=== PATIENT | male | born 1950 | race Caucasian/White ===

== ENCOUNTER 2018-06-16 13:26 | Emergency (ER) | payer MEDICARE, SELFPAY ==
[2018-06-16 13:27] VITALS: BP 159/99; PULSE 88; RESP 10; TEMP 36.4; O2SAT 99; BMI 33.6
--- NOTE | 2018-06-16 13:54 | ED.VISSUMM ---
- ER Visit Summary Date of Service: 06/16/18 Chief Complaint: Chest discomfort History of Present Illness: The patient is a 67 M who shoveled his driveway yesterday without experiencing chest pain, shortness of breath or diaphoresis. He did not complain of nausea either. 30 minutes after he was in the house, he states he had itching of his back. He noted a rash on his chest this morning. He did have chickenpox as a child. He has no other symptoms. Review of systems is positive only for chest discomfort and rash. 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 It is noted on his back as well as chest. The rash does not cross midline. HEENT exam is unremarkable. Cardiopulmonary exam is unremarkable. Lower extremity exam is unremarkable with no evidence of DVT or peripheral arterial disease. Blood pressure is elevated. He does have history of hypertension. Test Results: None were obtained Emergency Department Course and Treatment: Patient was informed he has shingles . He was given a prescription for Famvir since symptoms started less than 24 hours ago and family is not on formulary at [facility] Treatment Plan: Famvir 500 mg 3 times daily for 7 days Disposition: Discharge to home Impression: Herpes varicella-zoster T6 distribution left side This note was generated with [employer] dictation software. It may contain incorrect words, spelling, and punctuation that were not noted in review of the chart prior to signing ED Disposition - Plan for ED Patient: Disposition: Home or Assisted Living Chief Complaint: Chest Pain Instructions: ED Shingles Prescriptions: Famciclovir 500 mg PO TID #21 tab Referrals: Lenin Monaco MD [Primary Care Provider] - 10-14 Days if not better
--- NOTE | 2018-06-16 13:58 | ED.DCSUM_ITS ---
- ER Visit Summary Date of Service: 06/16/18 Chief Complaint: Chest discomfort History of Present Illness: The patient is a 67 M who shoveled his driveway yesterday without experiencing chest pain, shortness of breath or diaphoresis. He did not complain of nausea either. 30 minutes after he was in the house, he states he had itching of his back. He noted a rash on his chest this morning. He did have chickenpox as a child. He has no other symptoms. Review of systems is positive only for chest discomfort and rash. 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 It is noted on his back as well as chest. The rash does not cross midline. HEENT exam is unremarkable. Cardiopulmonary exam is unremarkable. Lower extremity exam is unremarkable with no evidence of DVT or peripheral arterial disease. Blood pressure is elevated. He does have history of hypertension. Test Results: None were obtained Emergency Department Course and Treatment: Patient was informed he has shingles . He was given a prescription for Famvir since symptoms started less than 24 hours ago and family is not on formulary at [facility] Treatment Plan: Famvir 500 mg 3 times daily for 7 days Disposition: Discharge to home Impression: Herpes varicella-zoster T6 distribution left side This note was generated with [employer] dictation software. It may contain incorrect words, spelling, and punctuation that were not noted in review of the chart prior to signing ED Disposition - Plan for ED Patient: Disposition: Home or Assisted Living Chief Complaint: Chest Pain Instructions: ED Shingles Prescriptions: Famciclovir 500 mg PO TID #21 tab Referrals: Lenin Monaco MD [Primary Care Provider] - 10-14 Days if not better
--- NOTE | 2018-06-16 14:22 | EKG12_ITS ---
Test Reason : CP Blood Pressure : / mmHG Vent. Rate : 090 BPM Atrial Rate : 090 BPM P-R Int : 150 ms QRS Dur : 080 ms QT Int : 346 ms P-R-T Axes : 057 019 024 degrees QTc Int : 423 ms Normal sinus rhythm Normal ECG Confirmed by SEBASTIAN RODRIGES, RHINA ([id number]), tape editor SEAN ORNELAS ([id number]) on 06/18/2018 1:43:35 PM Referred By: MONICA/MELISSA Confirmed By:RHINA CORTES MD
--- OUTSIDE RECORDS SUMMARY | 2018-08-19 02:36 | XMS RPT_ITS ---
:1950 Author Organization OHIP Care Team Providers Name Role Phone LENIN GAGNON Attending Unavailable LENIN GAGNON Referring Unavailable DAVID AVILA (PA) Attending Unavailable LENIN GAGNON Referring Unavailable ENRIQUE SORIANO Admitting Unavailable ENRIQUE SORIANO Attending Unavailable CHELSI, LENIN Tovar Referring Unavailable DAVID AVILA (PA) Attending Unavailable CHELSI, LENIN Tovar Referring Unavailable LENIN GAGNON Attending Unavailable LENIN GAGNON Referring Unavailable LENIN GAGNON Referring Unavailable Lenin Gagnon Primary Care Unavailable Johns, Huber Attending Unavailable PROBLEMS PROBLEMS DATE TYPE CONDITION / CODE ATTENDING STATUS SOURCE 03/28/2015 Active Essential NA Active [facility] (primary) [place] hypertension / Repository I10(ICD-10) 12/03/2017 Active Encounter for BO, Active [facility] screening for ENRIQUE Ross [place] malignant neoplasm Repository of colon / Z12.11(ICD-10) PROCEDURES PROCEDURES No Procedure Records FoundRESULTS RESULTS 12 LEAD ELECTROCARDIOGRAM Observed: 06/18/2018 Status: F Source: [place] 1:44 PM [facility] [place] REPOSITORY [facility] Cardiovascular Services [address] [place] [address] 12 Lead EKG 06/16/18 1327 MR#: [id number] Acct: [id number] Name: KATEY CORDON Rep #: [id number] : 1950 67 From: Mc Cortes MD Attending Dr: Status: DEP ER Ordering Dr: Provider,Ed P. Date: 06/16/18 Location: ED Sex: M C Admitted: Test Reason : CP Blood Pressure : / mmHG Vent. Rate : 090 BPM Atrial Rate : 090 BPM P-R Int : 150 ms QRS Dur : 080 ms QT Int : 346 ms P-R-T Axes : 057 019 024 degrees QTc Int : 423 ms Normal sinus rhythm Normal ECG Confirmed by MC CORTES MD ([id number]), book or script editor SEAN ORNELAS ([id number]) on 06/18/2018 1:43:35 PM Referred By: MONICA/MELISSA Confirmed By:MC CORTES MD 06/18/18 1343 Date Mc Cortes MD CC: ED PHYSICIAN PROVIDER; Huber Johns MD; Lenin Gagnon MD Signed EMERGENCY DEPARTMENT Observed: 06/16/2018 Status: F Source: [place] SUMMARY 1:58 PM [facility] [place] REPOSITORY [facility] Medical Records Department [address] [place] [address] Emergency Department Summary 06/16/18 1354 MR#: [id number] Acct: [id number] Name: KATEY CORDON Rep #: [id number] : 1950 67 From: Huber Johns MD PCP: Lenin Gagnon MD Status: PRE ER - ER Visit Summary Date of Service: 06/16/18 Chief Complaint: Chest discomfort History of Present Illness: The patient is a 67 M who shoveled his driveway yesterday without experiencing chest pain, shortness of breath or diaphoresis. He did not complain of nausea either. 30 minutes after he was in the house, he states he had itching of his back. He noted a rash on his chest this morning. He did have chickenpox as a child. He has no other symptoms. Review of systems is positive only for chest discomfort and rash. 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 It is noted on his back as well as chest. The rash does not cross midline. HEENT exam is unremarkable. Cardiopulmonary exam is unremarkable. Lower extremity exam is unremarkable with no evidence of DVT or peripheral arterial disease. Blood pressure is elevated. He does have history of hypertension. Test Results: None were obtained Emergency Department Course and Treatment: Patient was informed he has shingles . He was given a prescription for Famvir since symptoms started less than 24 hours ago and family is not on formulary at [facility] Treatment Plan: Famvir 500 mg 3 times daily for 7 days Disposition: Discharge to home Impression: Herpes varicella-zoster T6 distribution left side This note was generated with [employer] software. It may contain incorrect words, spelling, and punctuation that were not noted in review of the chart prior to signing ED Disposition - Plan for ED Patient: Disposition: Home or Assisted Living Chief Complaint: Chest Pain Instructions: ED Shingles Prescriptions: Famciclovir 500 mg PO TID #21 tab Referrals: Lenin Gagnon MD [Primary Care Provider] - 10-14 Days if not better What to do if you have Problems For any increased pain, shortness of breath, bleeding, nausea or vomiting, chest pain, or any unexpected problems, contact your Primary Care Provider. Call [facility] ([phone]) or report to the closest Emergency Room. Call 911 if necessary. 06/16/18 1928 <Electronically signed by Huber Johns MD> Date Huber Johns MD Cosigner Signature (If Indicated): Date CC: Didier Nance MD; Lenin Gagnon MD CBC Collected: 01/16/2018 Status: F Source: ERIE 8:02 AM [facility] RE[facility] TYPE CODE TESTS RESULT OUT OF REFERENCE UNITS RANGE LAB WBC 3.70-11.00 k/uL WBC 4.12 LAB RBC 4.20-6.00 m/uL RBC 4.84 LAB HGB 13.0-17.0 g/dL Hemoglobin 14.9 LAB HCT 39.0-51.0 % Hematocrit 47.3 LAB MCV 80.0-100.0 fL MCV 97.7 LAB MCH 26.0-34.0 pG MCH 30.8 LAB MCHC 30.5-36.0 g/dL MCHC 31.5 LAB RDWCV 11.5-15.0 % RDW-CV 12.0 LAB PLTCT 150-400 k/uL Platelet Count 268 LAB MPV 9.0-12.7 fL MPV 10.0 LAB ABSNUC <0.01 k/uL Absolute nRBC <0.01 Performed By: #### CBC, CMP, LIPB #### [facility] [address] [place], [place] [address] COMP METABOLIC PANEL Collected: 01/16/2018 Status: F Source: [place] 8:02 AM [facility] [place] REPOSITORY TYPE CODE TESTS RESULT OUT OF REFERENCE UNITS RANGE LAB TP 6.3-8.0 g/dL Protein, Total 6.6 LAB ALB 3.9-4.9 g/dL Albumin 3.9 LAB CA 8.5-10.2 mg/dL Calcium, Total 9.1 LAB TBIL 0.2-1.3 mg/dL Bilirubin, Total 0.4 LAB ALKP 36-108 U/L Alkaline Phosphatase 59 LAB AST 14-40 U/L AST 37 Result Comment: Results may be falsely increased due to interference by hemolysis. Suggest reorder as clinically indicated. LAB GLU 74-99 mg/dL Glucose 93 Result Comment: The [place] Diabetes Association (ADA) provides guidance for cutoff values for fasting glucose and random glucose. The ADA defines fasting as no caloric intake for at least 8 hours. Fas ting plasma glucose results between 100 to 125 mg/dL indicate increased risk for diabetes (prediabetes). Fasting plasma glucose results greater than or equal to 126 mg/dL meet the criteria for diagnosis of diabetes. In the absence of unequivocal hyperglycemia, results should be confirmed by repeat testing. In a patient with classic symptoms of hyperglycemia or hyperglycemic crisis, random plasma glucose results greater than or equal to 200 mg/dL meet the criteria for diagnosis of diabetes. Reference: Standards of Medical Care in Diabetes 2016, [place] Diabetes Association. Diabetes Care. 2016.39(Suppl 1). LAB BUN 9-24 mg/dL BUN 15 LAB CRET 0.73-1.22 mg/dL Creatinine 1.12 LAB NA 136-144 mmol/L Sodium 140 LAB K 3.7-5.1 mmol/L Potassium 4.2 LAB CL 97-105 mmol/L Chloride High 106 LAB CO2 22-30 mmol/L CO2 24 LAB AGAP 9-18 mmol/L Anion Gap 10 LAB ALT 10-54 U/L ALT 20 LAB GFRAA eGFR- Amer. >60 LAB GFRNAA . eGFR-All Other Races >60 Result Comment: eGFR (Estimated GFR) Units of measure: mL/min/1.73 meters squared eGFR is derived from the reexpressed MDRD Study equation using the following parameters: serum creatinine, age, gender and race. The creatinine assay has been calibrated to be traceable to IDMS. An eGFR <60 mL/min/1.73m2 for >3 months is consistent with chronic kidney disease. Refer to KDOQI guidelines for clinical interpretation. In patients with unstable renal function, e.g. those with acute kidney injury, the eGFR may not accurately reflect actual GFR. Performed By: #### CBC, CMP, LIPB #### [facility] [address] [place], [place] [address] LIPID PANEL, BASIC Collected: 01/16/2018 Status: F Source: [place] 8:02 AM [facility] [place] REPOSITORY TYPE CODE TESTS RESULT OUT OF REFERENCE UNITS RANGE LAB CHOL <200 mg/dL Cholesterol 154 Result Comment: <200 mg/dL, Desirable 200-239 mg/dL, Borderline high >239 mg/dL, High LAB TRIGLY <150 mg/dL Triglyceride 79 Result Comment: <150 mg/dL, Normal 150-199 mg/dL, Borderline high 200-499 mg/dL, High >499 mg/dL, Very high LAB HDL >39 mg/dL HDL-Cholesterol 41 Result Comment: 40-59 mg/dL, Acceptable >59 mg/dL, High: Negative risk factor for coronary heart disease <40 mg/dL, Low: Positive risk factor for coronary heart disease LAB LDL <100 mg/dL LDL-Cholesterol 97 Result Comment: <100 mg/dL, Optimal 100-129 mg/dL, Near optimal/above optimal 130-159 mg/dL, Borderline high 160-189 mg/dL, High >189 mg/dL, Very high Secondary prevention optimal LDL Cholesterol levels are recommended to be < 70 mg/dL LAB NONHDL <130 mg/dL Non HDL Cholesterol 113 Result Comment: <130 mg/dL, Optimal 130-159 mg/dL, Near optimal/above optimal 160-189 mg/dL, Borderline high 190-219 mg/dL, High >219 mg/dL, Very high Secondary prevention optimal non HDL Cholesterol levels are recommended to be < 100 mg/dL LAB FT hrs Fasting Time 12 LAB VLDL <30 mg/dL VLDL Cholesterol 16 LAB TCHDL <5.10 TC:HDL Ratio 3.76 LAB LDLHDL <2.54 LDL:HDL Ratio 2.37 Result Comment: Reference: 1. National Cholesterol Education Program ATP III Guideline At-A-Glance Quick Desk Reference: National Heart, Lung, and Blood [place]. National Institutes of Health. 2001: NIH Publication No. 01-3305. 2. An International Atherosclerosis Society position paper: global recommendations for the management of dyslipidemia: executive summary, Atherosclerosis. 2014: 232(2):410-413. Performed By: #### CBC, CMP, LIPB #### [facility] [address] [address] PROGRESS Observed: 01/14/2018 Status: COMPLETED Source: [place] 11:23 AM [facility] REPOSITORY HNO ID: [id number] Author: Lenin Gagnon Service: (none) Author Type: Physician Type: Progress Notes Filed: 01/14/2018 11:31 AM Note Text: This note was created using Panlriter. Subjective Katey Cordon was here for follow up. His hypertension and lumbago were stable. He was recently started on omeprazole for GERD and this was better. He was supposed to finish omeprazole and see if his symptoms recur. He had not done his annual lab work. He will do so tomorrow, fasting. He was usually using his CPAP, at least 5 nights per week, with good effect. ACTIVE PROBLEM LIST Essential Hypertension Benign Neoplasm of Colon Erectile Dysfunction Lumbar Spondylosis VICENTA (obstructive sleep apnea) AHI 40.5 Gerd With Esophagitis Obesity, Class II, Bmi 35-39.9 Current Outpatient Prescriptions: Omeprazole (PRILOSEC) 40 mg capsule Take 1 capsule by mouth once daily. triamterene-hydrochlorothiazide (MAXZIDE-25) 37.5-25 mg per tablet Take 1 tablet by mouth once daily. diltiazem CD (CARTIA XT) 240 mg 24 hr capsule Take 1 capsule by mouth once daily. meloxicam (MOBIC) 15 mg tablet TAKE 1 TABLET EVERY DAY potassium chloride ER (K-DUR, KLOR-CON) 10 mEq tablet TAKE 2 TABLETS ONE TIME DAILY WITH FOOD turmeric root extract 500 mg cap Take 1 capsule by mouth twice daily. CPAP AutoPAP 5-15 cmH2O, suitable mask, humidity, filters. Lifetime supplies. Dx: G47.33. nystatin powder Apply to affected area twice daily as needed. 1 application Cholecalciferol, Vitamin D3, 2,000 unit ORAL Cap Take 1 tablet by mouth once daily. No current facility-administered medications for this visit. Review of Systems Constitutional: Negative. Respiratory: Negative. Cardiovascular: Negative. Gastrointestinal: Negative. Musculoskeletal: Positive for back pain. Neurological: Negative. Objective BP 118/70 (BP Site: Right Arm, BP Position: Sitting, BP Cuff Size: Extra Large Adult) Pulse 68 Temp 36.2 ?C (97.2 ?F) (Left Tympanic) Resp 16 Ht 182.9 cm (6') Wt 120.2 kg (265 lb) BMI 35.94 kg/m? Physical Exam Constitutional: He appears well-developed and well-nourished. HENT: Head: Normocephalic. Neck: No JVD present. Cardiovascular: Normal rate, regular rhythm, normal heart sounds and intact distal pulses. Exam reveals no gallop. No murmur heard. Pulmonary/Chest: He has no wheezes. He has no rales. Abdominal: Soft. Musculoskeletal: He exhibits no edema. Assessment and Plan 1. Medicare annual wellness visit, subsequent - ICD9: V70.0, ICD10: Z00.00 (primary diagnosis) See other note. 2. Essential hypertension - ICD9: 401.9, ICD10: I10 - good control - POTASSIUM CHLORIDE ER 10 MEQ TABLET,EXTENDED RELEASE(PART/CRYST) 3. VICENTA (obstructive sleep apnea) AHI 40.5 - ICD9: 327.23, ICD10: G47.33 I encouraged 100% adherence to CPAP use. 4. GERD with esophagitis - ICD9: 530.11, ICD10: K21.0 Controlled. Finish and call for refill if needed. 5. Obesity, Class II, BMI 35-39.9 - ICD9: 278.00, ICD10: E66.9 Weight loss. 6. Lumbar spondylosis - ICD9: 721.3, ICD10: M47.816 Controlled. - MELOXICAM 15 MG TABLET Lenin Gagnon MD PROGRESS Observed: 01/14/2018 Status: COMPLETED Source: [facility] 11:03 AM [facility] [place] REPOSITORY HNO ID: [id number] Author: Lenin Gagnon Service: (none) Author Type: Physician Type: Progress Notes Filed: 01/14/2018 11:31 AM Note Text: Medicare Yearly Visit Medical B eligibilty date 06/27/2013 Date of last exam 03/28/2015 PAST MEDICAL HISTORY Diagnosis Date - Benign neoplasm of colon - Degenerative disc disease 08/09/2009 BMD 01/2010 normal. Low VitD and calcium- enc supplements - Depressive disorder, not elsewhere classified 02/06/2007 - Diverticulosis of colon (without mention of hemorrhage) Diverticulosis - Episodic cluster headache, not intractable 04/23/2015 - Erectile dysfunction 01/18/2011 - Essential hypertension 11/28/2005 - Internal hemorrhoids without mention of complication - Lumbago - Lumbar spondylosis 08/12/2012 - VICENTA (obstructive sleep apnea) AHI 40.5 08/22/2016 - VICENTA on CPAP 08/22/2016 [facility] - Personal history of colonic polyps Colon polyps - Personal history of tobacco use 08/09/2009 - Snoring - Unspecified essential hypertension - Unspecified hemorrhoids without mention of complication Hemorrhoids - Vitamin D deficiency 07/25/2010 27.9 level in 12/2009, started supplements PAST SURGICAL HISTORY Procedure Laterality Date - APPENDECTOMY - COLONOS W/REM POLYP SNARE 02/09/08 - COLONOSCOP W/ OR W/O [facility] SPEC 07/27/2004 Colonoscopy - COLONOSCOP W/ OR W/O [facility] SPEC 12/03/2017 Colonoscopy - EGD W/O OR W/BRUSH/WASH 11/13/12 EGD - EGD W/O OR W/BRUSH/WASH 12/03/2017 EGD - PAST SURGICAL HISTORY OF 1998 right great toe growth removed - PAST SURGICAL HISTORY OF 2012 injections in back for pain Patient has no known allergies. Medications reviewed: Yes FAMILY HISTORY Problem Relation Age of Onset - other (Other) Father MVA - Hypertension Brother - other (colon polyps) Brother were cancerous - Cancer Mother - Thyroid Mother - Alzheimer's Disease Mother - Hypertension Sister SOCIAL HISTORY: Social History Marital status: Spouse name: Years of education: Number of children: 0 Occupational History Occupation Employer Comment retired [employer] Social History Main Topics Smoking status: Former Smoker Packs/day: 0.50 Years: 40.00 Types: Cigarettes Quit date: 02/21/2009 Smokeless tobacco: Never Used Comment: less than a half a pack Alcohol use: Yes 1.0 oz/week Comment: rare Drug use: Yes Types: Marijuana Comment: occasionally Sexual activity: Yes Partners with: Female Katey works out regularly 3 times per week with walking on treadmill and light weights. He watches his diet for sodium, low fat and low cholesterol most of the time. List of current specialists seen: [facility]. End of Live Planning discussed including patients advanced directive wishes: No I am willing to follow Katey's advanced directives. Depression screen He in the past two weeks denies having felt down, depressed, hopeless or with little interest or pleasure in doing things. Functional Ability/Safety Screen 1. Was the patient's timed Up and Go test unsteady or longer than 30 seconds? No 2. Does the patient need help with the phone, transportation, shopping,preparing meals, housework, laundry, medications or managing money? No 3. Does your home have rugs in the hallway, lack of grab bars in the bathroom, lack of handrails on the stairs or have poor lighting? No Hearing Evaluation: normal PHYSICAL EXAM BP 134/76 (BP Site: Left Arm, BP Position: Sitting, BP Cuff Size: Large Adult) Pulse 68 Temp 36.2 ?C (97.2 ?F) (Left Tympanic) Resp 16 Ht 182.9 cm (6') Wt 120.2 kg (265 lb) BMI 35.94 kg/m? Alert and oriented X 3: YES Body mass index is 35.94 kg/m?. Visual acuity: OD: 20/70 OS: 20/ 50 OU: 20/40. ASSESSMENT/PLAN: 67 year old male The following prevention plan was discussed during the office visit and provided to the patient: - Weight Loss - Vaccines recommended Td, ABN is required. Shingrix. Lenin Gagnon MD CNOV Observed: 01/14/2018 Status: COMPLETED Source: [place] 10:20 AM [facility] REPOSITORY Office Visit (INTMWS) KATEY CORDON V ([id number]) 1950 M Date Time Provider Department 01/14/18 10:20 AM LENIN GAGNON INTTHANG During your visit today, we recorded the following information about you: Temperature Pulse Respiration Blood pressure 97.2 degrees 68/minute 16/minute 118/70 Weight Height 120.2 kg 1.829 m Lenin Gagnon MD 01/14/2018 11:31 AM Signed Medicare Yearly Visit Medical B eligibilty date 06/27/2013 Date of last exam 03/28/2015 PAST MEDICAL HISTORY Diagnosis Date - Benign neoplasm of colon - Degenerative disc disease 08/09/2009 BMD 01/2010 normal. Low VitD and calcium- enc supplements - Depressive disorder, not elsewhere classified 02/06/2007 - Diverticulosis of colon (without mention of hemorrhage) Diverticulosis - Episodic cluster headache, not intractable 04/23/2015 - Erectile dysfunction 01/18/2011 - Essential hypertension 11/28/2005 - Internal hemorrhoids without mention of complication - Lumbago - Lumbar spondylosis 08/12/2012 - VICENTA (obstructive sleep apnea) AHI 40.5 08/22/2016 - VICENTA on CPAP 08/22/2016 [facility] - Personal history of colonic polyps Colon polyps - Personal history of tobacco use 08/09/2009 - Snoring - Unspecified essential hypertension - Unspecified hemorrhoids without mention of complication Hemorrhoids - Vitamin D deficiency 07/25/2010 27.9 level in 12/2009, started supplements PAST SURGICAL HISTORY Procedure Laterality Date - APPENDECTOMY - COLONOS W/REM POLYP SNARE 02/09/08 - COLONOSCOP W/ OR W/O [facility] SPEC 07/27/2004 Colonoscopy - COLONOSCOP W/ OR W/O [facility] SPEC 12/03/2017 Colonoscopy - EGD W/O OR W/BRUSH/WASH 11/13/12 EGD - EGD W/O OR W/BRUSH/WASH 12/03/2017 EGD - PAST SURGICAL HISTORY OF 1998 right great toe growth removed - PAST SURGICAL HISTORY OF 2012 injections in back for pain Patient has no known allergies. Medications reviewed: Yes FAMILY HISTORY Problem Relation Age of Onset - other (Other) Father MVA - Hypertension Brother - other (colon polyps) Brother were cancerous - Cancer Mother - Thyroid Mother - Alzheimer's Disease Mother - Hypertension Sister SOCIAL HISTORY: Social History Marital status: Spouse name: Years of education: Number of children: 0 Occupational History Occupation Employer Comment retired [employer] Social History Main Topics Smoking status: Former Smoker Packs/day: 0.50 Years: 40.00 Types: Cigarettes Quit date: 02/21/2009 Smokeless tobacco: Never Used Comment: less than a half a pack Alcohol use: Yes 1.0 oz/week Comment: rare Drug use: Yes Types: Marijuana Comment: occasionally Sexual activity: Yes Partners with: Female Katey works out regularly 3 times per week with walking on treadmill and light weights. He watches his diet for sodium, low fat and low cholesterol most of the time. List of current specialists seen: [facility]. End of Live Planning discussed including patients advanced directive wishes: No I am willing to follow Katey's advanced directives. Depression screen He in the past two weeks denies having felt down, depressed, hopeless or with little interest or pleasure in doing things. Functional Ability/Safety Screen 1. Was the patient's timed Up and Go test unsteady or longer than 30 seconds? No 2. Does the patient need help with the phone, transportation, shopping,preparing meals, housework, laundry, medications or managing money? No 3. Does your home have rugs in the hallway, lack of grab bars in the bathroom, lack of handrails on the stairs or have poor lighting? No Hearing Evaluation: normal PHYSICAL EXAM BP 134/76 (BP Site: Left Arm, BP Position: Sitting, BP Cuff Size: Large Adult) Pulse 68 Temp 36.2 ?C (97.2 ?F) (Left Tympanic) Resp 16 Ht 182.9 cm (6') Wt 120.2 kg (265 lb) BMI 35.94 kg/m? Alert and oriented X 3: YES Body mass index is 35.94 kg/m?. Visual acuity: OD: 20/70 OS: 20/ 50 OU: 20/40. ASSESSMENT/PLAN: 67 year old male The following prevention plan was discussed during the office visit and provided to the patient: - Weight Loss - Vaccines recommended Td, ABN is required. Shingrix. MD Lenin Thibodeaux MD 01/14/2018 11:18 AM Signed VACCINES DUE: TDAP,TD(2 - Td) due on 12/04/2017 (Tetanus shot) INFLUENZA(1) due on 01/25/2018 (Flu shot) Recombinant shingles vaccine (Shingrix) is recommended; 2 doses 2-6 months apart. Please read information, check with your insurance, and call to schedule vaccination. You may also be directed to your local pharmacy. Lenin Gagnon MD 01/14/2018 11:31 AM Signed This note was created using Panlriter. Subjective Katey Cordon was here for follow up. His hypertension and lumbago were stable. He was recently started on omeprazole for GERD and this was better. He was supposed to finish omeprazole and see if his symptoms recur. He had not done his annual lab work. He will do so tomorrow, fasting. He was usually using his CPAP, at least 5 nights per week, with good effect. ACTIVE PROBLEM LIST Essential Hypertension Benign Neoplasm of Colon Erectile Dysfunction Lumbar Spondylosis VICENTA (obstructive sleep apnea) AHI 40.5 Gerd With Esophagitis Obesity, Class II, Bmi 35-39.9 Current Outpatient Prescriptions: Omeprazole (PRILOSEC) 40 mg capsule Take 1 capsule by mouth once daily. triamterene-hydrochlorothiazide (MAXZIDE-25) 37.5-25 mg per tablet Take 1 tablet by mouth once daily. diltiazem CD (CARTIA XT) 240 mg 24 hr capsule Take 1 capsule by mouth once daily. meloxicam (MOBIC) 15 mg tablet TAKE 1 TABLET EVERY DAY potassium chloride ER (K-DUR, KLOR-CON) 10 mEq tablet TAKE 2 TABLETS ONE TIME DAILY WITH FOOD turmeric root extract 500 mg cap Take 1 capsule by mouth twice daily. CPAP AutoPAP 5-15 cmH2O, suitable mask, humidity, filters. Lifetime supplies. Dx: G47.33. nystatin powder Apply to affected area twice daily as needed. 1 application Cholecalciferol, Vitamin D3, 2,000 unit ORAL Cap Take 1 tablet by mouth once daily. No current facility-administered medications for this visit. Review of Systems Constitutional: Negative. Respiratory: Negative. Cardiovascular: Negative. Gastrointestinal: Negative. Musculoskeletal: Positive for back pain. Neurological: Negative. Objective BP 118/70 (BP Site: Right Arm, BP Position: Sitting, BP Cuff Size: Extra Large Adult) Pulse 68 Temp 36.2 ?C (97.2 ?F) (Left Tympanic) Resp 16 Ht 182.9 cm (6') Wt 120.2 kg (265 lb) BMI 35.94 kg/m? Physical Exam Constitutional: He appears well-developed and well-nourished. HENT: Head: Normocephalic. Neck: No JVD present. Cardiovascular: Normal rate, regular rhythm, normal heart sounds and intact distal pulses. Exam reveals no gallop. No murmur heard. Pulmonary/Chest: He has no wheezes. He has no rales. Abdominal: Soft. Musculoskeletal: He exhibits no edema. Assessment and Plan 1. Medicare annual wellness visit, subsequent - ICD9: V70.0, ICD10: Z00.00 (primary diagnosis) See other note. 2. Essential hypertension - ICD9: 401.9, ICD10: I10 - good control - POTASSIUM CHLORIDE ER 10 MEQ TABLET,EXTENDED RELEASE(PART/CRYST) 3. VICENTA (obstructive sleep apnea) AHI 40.5 - ICD9: 327.23, ICD10: G47.33 I encouraged 100% adherence to CPAP use. 4. GERD with esophagitis - ICD9: 530.11, ICD10: K21.0 Controlled. Finish and call for refill if needed. 5. Obesity, Class II, BMI 35-39.9 - ICD9: 278.00, ICD10: E66.9 Weight loss. 6. Lumbar spondylosis - ICD9: 721.3, ICD10: M47.816 Controlled. - MELOXICAM 15 MG TABLET Lenin Gagnon MD Referring Provider: LENIN GAGNON [[id number]] Allergies As of Date: 01/14/2018 (No Known Allergies) Date Reviewed: 01/14/2018 Reviewed by: Brook Crawley LPN - Fully Assessed Reason for Visit: Yearly Exam [187] Primary Visit Diagnosis:Medicare annual wellness visit, subsequent [Z00.00] Other Visit Diagnoses:Essential hypertension [I10] VICENTA (obstructive sleep apnea) AHI 40.5 [G47.33] GERD with esophagitis [K21.0] Obesity, Class II, BMI 35-39.9 [E66.9] Lumbar spondylosis [M47.816] Order(s):meloxicam (MOBIC) 15 mg tabletTake 1 tablet by mouth once daily.Disp: 90 tabletRfl: 3 potassium chloride ER (K-DUR, KLOR-CON) 10 mEq tabletTAKE 2 TABLETS ONE TIME DAILY WITH FOODDisp: 180 tabletRfl: 3 Prescriptions as of 01/14/2018 Sig: MELOXICAM 15 MG TABLET Take 1 tablet by mouth once d* POTASSIUM CHLORIDE ER 10 MEQ * TAKE 2 TABLETS ONE TIME DAILY* OMEPRAZOLE 40 MG CAPSULE,JEANNIE* Take 1 capsule by mouth once * TRIAMTERENE 37.5 MG-HYDROCHLO* Take 1 tablet by mouth once d* DILTIAZEM SR 240 MG 24 HR CAP Take 1 capsule by mouth once * TURMERIC ROOT EXTRACT 500 MG * Take 1 capsule by mouth twice* CPAP AutoPAP 5-15 cmH2O, suitable * NYSTATIN 100,000 UNIT/GRAM TO* Apply to affected area twice* CHOLECALCIFEROL (VITAMIN D3) * Take 1 tablet by mouth once d* Problem List As Of Date 01/14/2018 Noted Resolved Sprain and Strain of Ribs [S23.41XA] INVALID FOR*08/09/2009 Unspecified constipation [K59.00] INVALID FOR*10/03/2016 Essential hypertension [I10] INVALID FOR* Lumbago [M54.5] 07/08/2017 Unspecified hemorrhoids without mention of comp* 10/03/2016 More... Diverticulosis of colon (without mention of hem* 10/03/2016 More... Personal history of colonic polyps [Z86.010] 01/14/2018 More... Tobacco Use Disorder [F17.200] INVALID FOR*08/09/2009 Depressive disorder, not elsewhere classified [*INVALID FOR*10/03/2016 BENIGN NEOPLASM LG BOWEL [D12.6] INVALID FOR* Degenerative disc disease [YJX5276] INVALID FOR*10/03/2016 More... Personal history of tobacco use [Z87.891] INVALID FOR*10/03/2016 Left hip pain [M25.552] INVALID FOR*10/03/2016 Vitamin D deficiency [E55.9] INVALID FOR*10/03/2016 More... Erectile dysfunction [N52.9] INVALID FOR*01/14/2018 Lumbar spondylosis [M47.816] INVALID FOR* Episodic cluster headache, not intractable [G44*INVALID FOR*10/03/2016 VICENTA (obstructive sleep apnea) AHI 40.5 [G47.33] INVALID FOR* GERD with esophagitis [K21.0] INVALID FOR* Obesity, Class II, BMI 35-39.9 [E66.9] INVALID FOR* Other instructions from your clinician: VACCINES DUE: TDAP,TD(2 - Td) due on 12/04/2017 (Tetanus shot) INFLUENZA(1) due on 01/25/2018 (Flu shot) Recombinant shingles vaccine (Shingrix) is recommended; 2 doses 2-6 months apart. Please read information, check with your insurance, and call to schedule vaccination. You may also be directed to your local pharmacy. Prescriptions ordered this encounter Disp Refills Start End MELOXICAM 15 MG TABLET 90 t* 3 01/14/2018 Class: [employer] Route: ORAL Sig: Take 1 tablet by mouth once daily. POTASSIUM CHLORIDE ER 10 MEQ TABLET,* 180 * 3 01/14/2018 Class: [employer] Sig: TAKE 2 TABLETS ONE TIME DAILY WITH FOOD Medications Discontinued During This Encounter sildenafil (VIAGRA) 100 mg ORAL tabl* 18 t* 3 07/23/2011 01/14/2018 Class: Print RX Route: ORAL Sig: Take 1 tablet by mouth. Take 30-60min before sexual intercourse as needed. Disc: Reason for discontinue is not on file. meloxicam (MOBIC) 15 mg tablet 90 t* 3 02/21/2017 01/14/2018 Sig: TAKE 1 TABLET EVERY DAY Disc: Reason for discontinue is not on file. potassium chloride ER (K-DUR, KLOR-C* 180 * 3 01/07/2017 01/14/2018 Sig: TAKE 2 TABLETS ONE TIME DAILY WITH FOOD Disc: Reason for discontinue is not on file. Disposition: Return in about 6 months (around 07/17/2018). Follow-up and Disposition History Recorded Encounter Status:Closed by LENIN GAGNON MD on 01/14/18 PROGRESS Observed: 12/12/2017 Status: COMPLETED Source: [facility] 4[facility]37 PM [facility] RE[facility] HNO ID: [id number] Author: David Avila (Pa) Service: (none) Author Type: Physician Capacity Analyst Type: Progress Notes Filed: 12/12/2017 4:43 PM Note Text: FOLLOW UP VISIT - ENDOSCOPY NAME: Katey Cordon [facility] NO.: [id number] DATE OF SERVICE: 12/11/2017 : 1950 REFERRING PHYSICIAN: Lenin Gagnon MD Katey is a patient I am following for dysphagia as well as need for high-risk screening colonoscopy due to family history of colon cancer and personal history of polyps. Dr. Soriano performed upper and lower endoscopy on 11/18/17. The patient was found to have diverticulosis with otherwise normal colon, normal stomach and duodenum, and reflux esophagitis. Pathology demonstrated: FINAL DIAGNOSIS 1. Antrum, biopsy (A) - Antral-type gastric mucosa with changes of inactive chronic gastritis. - An H. pylori immunohistochemical stain will be performed, the results of which will be reported in an addendum. 2. Esophagogastric junction, biopsy (B) - Inflamed cardiac and oxyntic-type gastric mucosa, negative for intestinal metaplasia. 3. Esophagus, mid, biopsy (C) - Fragment of squamous mucosa with no diagnostic abnormalities. - No prominence of eosinophils or lymphocytes and no intestinal metaplasia. BLAYNE/loy 12/04/2017 Deep Veras M.D., Ph.D. (Electronic Signature) SPECIMEN SUBMITTED A: ANTRUM, BIOPSY H/H B: ESOPHAGOGASTRIC JUNCTION, BIOPSY C: MID ESOPHAGUS, BIOPSY ADDENDUM ? ? ?Date Ordered: ? ? 12/06/2017 ? ? Date Reported: 12/08/2017 ? ? ? Given the background of chronic gastritis a Helicobacter pylori immunostain was performed on block A1 and is negative for Helicobacter pylori organisms. The patient notes no new complaints since the procedure. VITALS: There were no vitals taken for this visit. On examination, the abdomen is benign. Assessment IMPRESSION: family history of colon cancer, personal history of colon polyps. Reflux esophagitis PLAN: If the patient notes any problems or changes in bowel function, the patient should contact me immediately. Otherwise I recommend follow up endoscopy in 5 years. For the reflux esophagitis recommend treatment with omeprazole for 3 months, in addition to dietary and lifestyle modifications as discussed. He is instructed to follow up if his dysphagia worsens or persists despite these measures. Patient verbalized understanding and agreed with the plan. Diagnoses: (K21.0) GERD with esophagitis (primary encounter diagnosis) (Z80.0) Family history of colon cancer I spent 20 minutes in the visit, with more than 50% of the total tusn-re-cmwt time of the visit in counseling / coordination of care. David Avila PA-C CNOV Observed: 12/11/2017 Status: COMPLETED Source: [facility] 8:00 AM [facility] REPOSITORY Office Visit (GENSWS) KATEY CORDON V ([id number]) 1950 M Date Time Provider Department 12/11/17 8:00 AM DAVID AVILA (PA) During your visit today, we recorded the following information about you: David Avila PA-C 12/11/2017 8:20 AM Signed The following instructions are important for you related to your office visit today with the [facility]. INSTRUCTIONS FOLLOWING A NORMAL COLONOSCOPY W/ FAMILY HX COLON CANCER 5YR I discussed with you the findings of your colonoscopy. Since there were no worrisome abnormalities, I recommend you undergo repeat endoscopic screening every 5 years due to your family history of colon cancer. This is the current recommendation for colon cancer screening. If you note bleeding, change in bowel habits, or other suspicious colon related symptoms before that time, those symptoms should be evaluated as necessary. and INSTRUCTIONS FOR PEPTIC ULCER DISEASE - ESOPHAGITIS I discussed with you the findings of your upper endoscopy. Your upper endoscopy demonstrated esophagitis Esophagitis may be a form of peptic irritation, with acid moving from the stomach to the esophagus (gastroesophageal reflux) Factors that increase acid production include smoking and stress. If you smoke, stopping smoking will often cure these issues without needing other medications. Over the counter medications including antiacids and acid reducing medications including H2 blockers (Zantac and the like) and proton pump inhibitors (prilosec, prevacid and the like) neutralize or prevent acid production. Prescription strength proton pump inhibitors (PPIs) may be necessary if your symptoms persist. Carafate may be added to PPI treatment in refractory cases. Avoiding smoking, alcohol and antiinflammatory medications are important in the successful treatment of reflux esophagitis and peptic diseases. Other factors that contribute to GERD and esophagitis are being overweight, eating large meals before laying down and certain foods. Weight loss will help improve many GERD complaints. Remaining upright after eating large meals and having a small supper will also help symptoms. Avoiding food that contribute to reflux - chocolate, caffeine, cheddar cheese may also help. Follow up upper endoscopy may be recommended to assure healing of the esophagus. New or worsening symptoms such are epigastric pain, burning, difficulty swallowing or food sticking should be relayed to your physician. Feeling full early after eating, or black, tarry, foul smelling stools are also worrisome. If you have any difficulties or concerns, you should contact our office immediately. If you note any additional difficulties, questions, or concerns, you should contact our office immediately @ [phone] and ask to be transferred to the General Surgery department. David Avila PA-C 12/12/2017 4:43 PM Signed FOLLOW UP VISIT - ENDOSCOPY NAME: Katey Storey [facility] NO.: [id number] DATE OF SERVICE: 12/11/2017 : 1950 REFERRING PHYSICIAN: Lenin Gagnon MD Katey is a patient I am following for dysphagia as well as need for high-risk screening colonoscopy due to family history of colon cancer and personal history of polyps. Dr. Soriano performed upper and lower endoscopy on 11/18/17. The patient was found to have diverticulosis with otherwise normal colon, normal stomach and duodenum, and reflux esophagitis. Pathology demonstrated: FINAL DIAGNOSIS 1. Antrum, biopsy (A) - Antral-type gastric mucosa with changes of inactive chronic gastritis. - An H. pylori immunohistochemical stain will be performed, the results of which will be reported in an addendum. 2. Esophagogastric junction, biopsy (B) - Inflamed cardiac and oxyntic-type gastric mucosa, negative for intestinal metaplasia. 3. Esophagus, mid, biopsy (C) - Fragment of squamous mucosa with no diagnostic abnormalities. - No prominence of eosinophils or lymphocytes and no intestinal metaplasia. BLAYNE/loy 12/04/2017 Deep Veras M.D., Ph.D. (Electronic Signature) SPECIMEN SUBMITTED A: ANTRUM, BIOPSY H/H B: ESOPHAGOGASTRIC JUNCTION, BIOPSY C: MID ESOPHAGUS, BIOPSY ADDENDUM ? ? ?Date Ordered: ? ? 12/06/2017 ? ? Date Reported: 12/08/2017 ? ? ? Given the background of chronic gastritis a Helicobacter pylori immunostain was performed on block A1 and is negative for Helicobacter pylori organisms. The patient notes no new complaints since the procedure. VITALS: There were no vitals taken for this visit. On examination, the abdomen is benign. Assessment IMPRESSION: family history of colon cancer, personal history of colon polyps. Reflux esophagitis PLAN: If the patient notes any problems or changes in bowel function, the patient should contact me immediately. Otherwise I recommend follow up endoscopy in 5 years. For the reflux esophagitis recommend treatment with omeprazole for 3 months, in addition to dietary and lifestyle modifications as discussed. He is instructed to follow up if his dysphagia worsens or persists despite these measures. Patient verbalized understanding and agreed with the plan. Diagnoses: (K21.0) GERD with esophagitis (primary encounter diagnosis) (Z80.0) Family history of colon cancer I spent 20 minutes in the visit, with more than 50% of the total zpvu-ce-gklc time of the visit in counseling / coordination of care. David Avila PA-C Referring Provider: LENIN GAGNON [[id number]] Allergies As of Date: 12/11/2017 (No Known Allergies) Date Reviewed: 12/11/2017 Reviewed by: Hugo Vivas LPN - Fully Assessed Primary Visit Diagnosis:GERD with esophagitis [K21.0] Other Visit Diagnosis:Family history of colon cancer [Z80.0] Order(s):Omeprazole (PRILOSEC) 40 mg capsuleTake 1 capsule by mouth once daily.Disp: 30 capsuleRfl: 2 Prescriptions as of 12/11/2017 Sig: TRIAMTERENE 37.5 MG-HYDROCHLO* Take 1 tablet by mouth once d* DILTIAZEM SR 240 MG 24 HR CAP Take 1 capsule by mouth once * MELOXICAM 15 MG TABLET TAKE 1 TABLET EVERY DAY POTASSIUM CHLORIDE ER 10 MEQ * TAKE 2 TABLETS ONE TIME DAILY* TURMERIC ROOT EXTRACT 500 MG * Take 1 capsule by mouth twice* CPAP AutoPAP 5-15 cmH2O, suitable * NYSTATIN 100,000 UNIT/GRAM TO* Apply to affected area twice* CHOLECALCIFEROL (VITAMIN D3) * Take 1 tablet by mouth once d* SILDENAFIL 100 MG TABLET Take 1 tablet by mouth. Take * OMEPRAZOLE 40 MG CAPSULE,JEANNIE* Take 1 capsule by mouth once * Problem List As Of Date 12/11/2017 Noted Resolved Sprain and Strain of Ribs [S23.41XA] INVALID FOR*08/09/2009 Unspecified constipation [K59.00] INVALID FOR*10/03/2016 Essential hypertension [I10] INVALID FOR* Lumbago [M54.5] 07/08/2017 Unspecified hemorrhoids without mention of comp* 10/03/2016 More... Diverticulosis of colon (without mention of hem* 10/03/2016 More... PERS HX COLONIC POLYPS [Z86.010] More... Tobacco Use Disorder [F17.200] INVALID FOR*08/09/2009 Depressive disorder, not elsewhere classified [*INVALID FOR*10/03/2016 BENIGN NEOPLASM LG BOWEL [D12.6] INVALID FOR* Degenerative disc disease [XOH9224] INVALID FOR*10/03/2016 More... Personal history of tobacco use [Z87.891] INVALID FOR*10/03/2016 Left hip pain [M25.552] INVALID FOR*10/03/2016 Vitamin D deficiency [E55.9] INVALID FOR*10/03/2016 More... Erectile dysfunction [N52.9] INVALID FOR* Lumbar spondylosis [M47.816] INVALID FOR* Episodic cluster headache, not intractable [G44*INVALID FOR*10/03/2016 VICENTA (obstructive sleep apnea) AHI 40.5 [G47.33] INVALID FOR* Other instructions from your clinician: The following instructions are important for you related to your office visit today with the [facility]. INSTRUCTIONS FOLLOWING A NORMAL COLONOSCOPY W/ FAMILY HX COLON CANCER 5YR I discussed with you the findings of your colonoscopy. Since there were no worrisome abnormalities, I recommend you undergo repeat endoscopic screening every 5 years due to your family history of colon cancer. This is the current recommendation for colon cancer screening. If you note bleeding, change in bowel habits, or other suspicious colon related symptoms before that time, those symptoms should be evaluated as necessary. and INSTRUCTIONS FOR PEPTIC ULCER DISEASE - ESOPHAGITIS I discussed with you the findings of your upper endoscopy. Your upper endoscopy demonstrated esophagitis Esophagitis may be a form of peptic irritation, with acid moving from the stomach to the esophagus (gastroesophageal reflux) Factors that increase acid production include smoking and stress. If you smoke, stopping smoking will often cure these issues without needing other medications. Over the counter medications including antiacids and acid reducing medications including H2 blockers (Zantac and the like) and proton pump inhibitors (prilosec, prevacid and the like) neutralize or prevent acid production. Prescription strength proton pump inhibitors (PPIs) may be necessary if your symptoms persist. Carafate may be added to PPI treatment in refractory cases. Avoiding smoking, alcohol and antiinflammatory medications are important in the successful treatment of reflux esophagitis and peptic diseases. Other factors that contribute to GERD and esophagitis are being overweight, eating large meals before laying down and certain foods. Weight loss will help improve many GERD complaints. Remaining upright after eating large meals and having a small supper will also help symptoms. Avoiding food that contribute to reflux - chocolate, caffeine, cheddar cheese may also help. Follow up upper endoscopy may be recommended to assure healing of the esophagus. New or worsening symptoms such are epigastric pain, burning, difficulty swallowing or food sticking should be relayed to your physician. Feeling full early after eating, or black, tarry, foul smelling stools are also worrisome. If you have any difficulties or concerns, you should contact our office immediately. If you note any additional difficulties, questions, or concerns, you should contact our office immediately @ [phone] and ask to be transferred to the General Surgery department. Prescriptions ordered this encounter Disp Refills Start End OMEPRAZOLE 40 MG CAPSULE,DELAYED REL* 30 c* 2 12/11/2017 Route: ORAL Sig: Take 1 capsule by mouth once daily. Encounter Status:Closed by DAVID AVILA PA-C on 12/12/17 NURSING PROG Observed: 12/03/2017 Status: COMPLETED Source: [facility] 11:23 AM [facility] REPOSITORY HNO ID: [id number] Author: Vivi LopezRn) DEVYN Bonner Service: Nursing Author Type: Registered Nurse Type: Nursing Progress Note Filed: 12/03/2017 11:24 AM Note Text: Patient did not experience a fall prior to discharge. Patient did not experience a burn prior to discharge. Vivi Bonner RN PT ED Observed: 12/03/2017 Status: COMPLETED Source: [facility] 11:00 AM [facility] REPOSITORY HNO ID: [id number] Author: Vivi LopezRn) DEVYN Bonner Service: Nursing Author Type: Registered Nurse Type: Patient Education Filed: 12/03/2017 11:01 AM Note Text: POST OP LEARNING RESPONSE INSTRUCTION PROVIDED TO: Patient METHOD OF INSTRUCTION: Written instruction - handouts Verbal instruction PATIENT / FAMILY RESPONSE: Verbalizes understanding of: INFECTION MANAGEMENT-Signs and symptoms of an infection and importance of contacting the physician PHYSICAL RESTRICTIONS-Physical restrictions and recommendations after discharge from the hospital POST-PROCEDURE INSTRUCTIONS-Correct actions to take to reduce post procedure complications PATIENT SAFETY PRINCIPLES WORSENING CONDITION-Signs and symptoms of a worsening condition that warrant a call to the physician FOLLOW-UP PLAN: Patient instructed to call with any further issues Follow up phone call. SUPPLEMENTAL MATERIAL: Procedure discharge instructions REFERRAL (RECOMMENDATION): None Electronically Signed By: Vivi Bonner RN In Department: AMBULATORY SURGERY NURSING PROG Observed: 12/03/2017 Status: COMPLETED Source: [facility] 10:04 AM [facility] REPOSITORY HNO ID: [id number] Author: Nedra LopezRn) DEVYN Christianson Service: Nursing Author Type: Registered Nurse Type: Nursing Progress Note Filed: 12/03/2017 10:04 AM Note Text: Patient did not experience a fall within the Intraoperative area. Patient did not experience a burn within the Intraoperative area. Nedra Christianson RN NURSING PROG Observed: 12/03/2017 Status: COMPLETED Source: [facility] 9:21 AM [facility] REPOSITORY HNO ID: [id number] Author: Vivi Hernandez (Rn) DEVYN Bonner Service: Nursing Author Type: Registered Nurse Type: Nursing Progress Note Filed: 12/03/2017 9:21 AM Note Text: [facility] PRE-OP NURSING HAND OFF NOTE SBAR Hand off given to Nedra Christianson RN. Hand off was communicated verbally and at the patient's bedside and all questions were answered. FALLS/CUELLO Patient did not experience a fall within the Preoperative area. Patient did not experience a burn within the Preoperative area. Vivi Bonner RN HISTORY PHYSICAL Observed: 12/03/2017 Status: COMPLETED Source: [facility] 8:32 AM [facility] REPOSITORY HNO ID: [id number] Author: Enrique Soriano Service: General Surgery Author Type: Physician Type: HANDP Filed: 12/03/2017 8:32 AM Note Text: HISTORY AND PHYSICAL ? Katey Storey [place] 1950 ? REFERRING PHYSICIAN: Lenin Gagnon MD ? CHIEF COMPLAINT: colon consult ? HPI: The patient is a 67 year old male referred for endoscopy. Katey notes a personal history of colon polyps as well as first- degree family history of colon cancer-brother. He was advised after last colonoscopy by Dr. Lin in 2012 to have 5-year follow-up. She denies any change in bowel habits, weight changes, blood in stools, black tarry stools or abdominal pain. ? The patient NOTES a history of swallowing issues and sensation of food becoming stuck in his throat, particularly rice, has to drink water to get the food to go down. Last EGD was in 2012. ? The patient is being seen by me today at the request of Dr. Gagnon for my opinion and advice regarding screening colonoscopy. Past medical history is significant for hypertension, sleep apnea, headaches, lubbago. Patient denies any problems with sedation in the past. ? ? PAST MEDICAL HISTORY PAST MEDICAL HISTORY Diagnosis Date - Benign neoplasm of colon ? - Degenerative disc disease 08/09/2009 ? BMD 01/2010 normal. Low VitD and calcium- enc supplements - Depressive disorder, not elsewhere classified 02/06/2007 - Diverticulosis of colon (without mention of hemorrhage) ? ? Diverticulosis - Episodic cluster headache, not intractable 04/23/2015 - Erectile dysfunction 01/18/2011 - Essential hypertension 11/28/2005 - Internal hemorrhoids without mention of complication ? - Lumbago ? - Lumbar spondylosis 08/12/2012 - VICENTA (obstructive sleep apnea) AHI 40.5 08/22/2016 - VICENTA on CPAP 08/22/2016 ? [facility] - Personal history of colonic polyps ? ? Colon polyps - Personal history of tobacco use 08/09/2009 - Unspecified essential hypertension ? - Unspecified hemorrhoids without mention of complication ? ? Hemorrhoids - Vitamin D deficiency 07/25/2010 ? 27.9 level in 12/2009, started supplements ? PAST SURGICAL HISTORY PAST SURGICAL HISTORY Procedure Laterality Date - APPENDECTOMY ? ? - COLONOS W/REM POLYP SNARE ? 02/09/08 - COLONOSCOP W/ OR W/O BRSH SPEC ? 07/27/2004 ? Colonoscopy - EGD W/O OR W/BRUSH/WASH ? 11/13/12 ? EGD - PAST SURGICAL HISTORY OF ? 1998 ? right great toe growth removed - PAST SURGICAL HISTORY OF ? ? ? injections in back for pain ? ? ? CURRENT MEDICATIONS ? Current Outpatient Prescriptions: triamterene-hydrochlorothiazide (MAXZIDE-25) 37.5-25 mg per tablet Take 1 tablet by mouth once daily. diltiazem CD (CARTIA XT) 240 mg 24 hr capsule Take 1 capsule by mouth once daily. meloxicam (MOBIC) 15 mg tablet TAKE 1 TABLET EVERY DAY potassium chloride ER (K-DUR, KLOR-CON) 10 mEq tablet TAKE 2 TABLETS ONE TIME DAILY WITH FOOD turmeric root extract 500 mg cap Take 1 capsule by mouth twice daily. CPAP AutoPAP 5-15 cmH2O, suitable mask, humidity, filters. Lifetime supplies. Dx: G47.33. nystatin powder Apply to affected area twice daily as needed. 1 application Cholecalciferol, Vitamin D3, 2,000 unit ORAL Cap Take 1 tablet by mouth once daily. sildenafil (VIAGRA) 100 mg ORAL tablet Take 1 tablet by mouth. Take 30-60min before sexual intercourse as needed. ? No current facility-administered medications for this visit. ? ALLERGIES: Patient has no known allergies. ? PERSONAL HISTORY: SOCIAL HISTORY Social History Marital status: Spouse name: Years of education: Number of children: 0 ? Occupational History Occupation Employer Comment retired [employer] ? Social History Main Topics Smoking status: Former Smoker Packs/day: 0.50 Years: 40.00 Types: Cigarettes Quit date: 02/21/2009 Smokeless tobacco: Never Used Comment: less than a half a pack Alcohol use: Yes 1.0 oz/week Comment: rare Drug use: Yes Types: Marijuana Comment: occasionally Sexual activity: Yes Partners with: Female ? ? FAMILY HISTORY: FAMILY HISTORY FAMILY HISTORY Problem Relation Age of Onset - Other [OTHER] Father ? ? ? MVA - Hypertension Brother ? - colon polyps [OTHER] Brother ? ? ? were cancerous - Cancer Mother ? - Thyroid Mother ? - Alzheimer's Disease Mother ? - Hypertension Sister ? ? ? REVIEW OF SYMPTOMS: The review of systems data was entered by the nurse and reviewed by me ? Nursing Notes: Natalya Fermin LPN 11/18/2017 9:34 AM Signed REVIEW OF SYSTEMS: General: The patient denies fatigue, denies weight loss, denies weight gain, denies feeling hot, and denies feelings of cold. Eyes: The patient denies glaucoma, NOTES eye injury/surgery, DOES wear glasses or contacts. Ear/Nose/Throat: The patient denies allergies, denies hayfever, denies ear infections, and denies bloody noses. Cardiovascular: The patient denies chest pain, denies heart disease, denies high blood pressure,denies cardiac stent, denies prior heart attack, denies irregular heart beat, denies high cholesterol, denies poor circulation, denies heart failure, other cardiac issues, denies claudication, denies cold feet, denies peripheral arterial stent. Respiratory: The patient denies tuberculosis, denies pneumonia, denies frequent cough, denies pulmonary embolism, denies shortness of breath, and denies coughing up blood. Gastrointestinal: The patient denies difficulty swallowing, denies acid reflux, denies ulcers, denies vomiting, denies jaundice/hepatitis, denies gallbladder problems, denies black or tarry stools, denies hemorrhoids, denies bleeding from rectum, denies diverticulitis, denies constipation, denies diarrhea, denies loss of stool control, and denies hernias. Kidney/Bladder: The patient denies kidney stones, denies urine infections, and denies bloody urine. Skin: The patient denies a history of skin cancer, denies bleeding/changing moles, and denies a history of skin rash. Neurologic: The patient denies a history of epilepsy/convulsions, denies headaches, denies head/spinal injuries, and denies stroke/TIA. Psychiatric: The patient denies psychiatric medications, denies depression, and denies voices, denies substance abuse. Endocrine: The patient denies thyroid disorders, denies diabetes, and denies hormonal problems. Hematologic: The patient denies a history of bruising, denies bleeding, and denies anemia, denies blood clots. Infections: The patient denies a history of measles and mumps, denies rheumatic fever, and denies sexually transmitted diseases. Musculoskeletal: The patient denies back pain/injury, NOTES back problems, denies sciatica, denies knee/foot trouble, NOTES arthritis, or denies gout. ? ? When was patient's last Mammogram screening? N/A ? Last Colonoscopy: 10/2012 ? Natalya Fermin LPN I have confirmed and edited as necessary, the PFSH and ROS obtained by others. ? PHYSICAL EXAMINATION: ? General: The patient is 67 year old male, well nourished, well hydrated in no acute distress. The patient is oriented to time, place, and person. ? VITALS: Blood pressure 126/74, height 185.4 cm (6' 1), weight 119.3 kg (263 lb). Body mass index is 34.7 kg/m?. ? HEENT: Normal cephalic, ataumatic, pupils are equally round, sclera are anicteric, mucous membranes are moist, oropharynx is clear. Neck has no masses, asymmetry or lymphadenopathy. ? Respiratory: Clear to auscultation and percussion. Normal respiratory excursion and pattern. ? Cardiac: Examination is regular rate and rhythm. ? Abdominal exam: Soft, nontender, with no palpable masses. No hepatosplenomegaly. No palpable hernias. ? Rectal exam: exam deferred ? Extremities: no clubbing, cyanosis or edema. No adenopathy. ? Other: ? LABORATORY VALUES: As Noted ? RADIOLOGIC STUDIES: As Noted ? Assessment IMPRESSION: encounter for screening colonoscopy, high-risk due to family history of colon cancer and personal history of polyps. Swallowing issues-recommend EGD in addition to colonoscopy ? PLAN: We will plan for upper and lower endoscopy. We discussed the risks and benefits of the planned endoscopy. I have informed the patient that complications can occur including failure to complete the endoscopy and perforation. The patient had the opportunity to ask questions concerning the planned endoscopy. My staff has also explained the procedure to the patient in understandable terms and has given the patient printed material concerning the procedure. The patient freely consents to surgery. ? I plan to use golytely bowel preparation for endoscopy ? Diagnoses: (Z80.0) Family history of colon cancer (primary encounter diagnosis) (R13.10) Esophageal dysphagia (Z12.11) Encounter for screening for malignant neoplasm of colon (Z86.010) Personal history of colonic polyps ? My findings have been communicated to Dr. Lenin Gagnon MD via shared medical record. This note will be forwarded to Dr. Lenin Gagnon MD. Return to Clinic: The patient is instructed to follow-up with me 1 week post operatively. ? ? David Avila PA-C PT ED Observed: 12/03/2017 Status: COMPLETED Source: [place] 8:14 AM [facility] REPOSITORY HNO ID: [id number] Author: Vivi Hernandez (Rn) DEVYN Bonner Service: Nursing Author Type: Registered Nurse Type: Patient Education Filed: 12/03/2017 8:15 AM Note Text: PRE OP LEARNING ASSESSMENT PROCEDURE/SURGERY: GI PROCEDURES: Colonoscopy and EGD READINESS TO LEARN COGNITIVE ABILITY: Alert and oriented MOTIVATION TO LEARN: Eager FAMILY SUPPORT: Unable to assess - Family not present PATIENT LEARNS BEST BY: Verbal Instruction FACTORS AFFECTING LEARNING: None PHYSICAL LIMITATIONS AFFECTING LEARNING: None Electronically Signed By: Vivi Bonner RN In Department: AMBULATORY SURGERY SURGICAL PATHOLOGY Observed: 12/03/2017 Status: C Source: [place] 12:00 AM [facility] REPOSITORY ADDENDUM PRESENT Specimen originated from [facility] Specimen #: [id number] Submitting Physician: ENRIQUE SORIANO ([id number]) FINAL DIAGNOSIS 1. Antrum, biopsy (A) - Antral-type gastric mucosa with changes of inactive chronic gastritis. - An H. pylori immunohistochemical stain will be performed, the results of which will be reported in an addendum. 2. Esophagogastric junction, biopsy (B) - Inflamed cardiac and oxyntic-type gastric mucosa, negative for intestinal metaplasia. 3. Esophagus, mid, biopsy (C) - Fragment of squamous mucosa with no diagnostic abnormalities. - No prominence of eosinophils or lymphocytes and no intestinal metaplasia. Wili 12/04/2017 Deep Veras M.D., Ph.D. (Electronic Signature) SPECIMEN SUBMITTED A: ANTRUM, BIOPSY H/H B: ESOPHAGOGASTRIC JUNCTION, BIOPSY C: MID ESOPHAGUS, BIOPSY ADDENDUM Date Ordered: 12/06/2017 Date Reported: 12/08/2017 Given the background of chronic gastritis a Helicobacter pylori immunostain was performed on block A1 and is negative for Helicobacter pylori organisms. Laboratory Developed Test (LDT) Disclaimer: Positive and negative controls stain appropriately. Performance characteristics of immunohistochemical, immunofluorescent and chromogenic in-situ hybridization tests have been determined by [facility]'s [facility] [place] ([facility]) in a manner consistent with CLIA requirements. One or more of these tests have not been cleared or approved by the FDA. [facility] is regulated under CLIA as qualified to perform high-complexity testing. These tests are used for clinical purposes. They should not be regarded as investigational or for research. Wili 12/06/2017 Addendum Pathologist: Deep Veras M.D., Ph.D. Electronic Signature CLINICAL DATA Z80.0, R13.10, Z12.11, Z86.010 GROSS DESCRIPTION A. Received in formalin is one piece of hernandez, soft tissue measuring 0.3 x 0.2 x 0.2 cm.Totally submitted in one cassette. B. Received in formalin is one piece of hernandez, soft tissue measuring 0.4 x 0.2 x 0.2 cm. Totally submitted in one cassette. C. Received in formalin is one piece of hernandez, soft tissue measuring 0.4 x 0.3 x 0.1 cm. Totally submitted in one cassette. Gross examination performed at [facility], [address] [place] [address] 12/04/2017 12:58:27 AM Date of Report: 12/04/2017 Date of Procedure: 12/03/2017 Date of Receipt: 12/03/2017 Submitted by: ENRIQUE SORIANO ([email or web address]) Location: [id number] Diagnostic interpretation performed at [place] [address]. PROGRESS Observed: 11/18/2017 Status: COMPLETED Source: [place] 11:34 AM [facility] REPOSITORY HNO ID: [id number] Author: David Avila (Pa) Service: (none) Author Type: Physician Capacity Analyst Type: Progress Notes Filed: 11/18/2017 11:52 AM Note Text: HISTORY AND PHYSICAL Katey Storey [place] 1950 REFERRING PHYSICIAN: Lenin Gagnon MD CHIEF COMPLAINT: colon consult HPI: The patient is a 67 year old male referred for endoscopy. Katey notes a personal history of colon polyps as well as first- degree family history of colon cancer-brother. He was advised after last colonoscopy by Dr. Lin in 2012 to have 5-year follow-up. She denies any change in bowel habits, weight changes, blood in stools, black tarry stools or abdominal pain. The patient NOTES a history of swallowing issues and sensation of food becoming stuck in his throat, particularly rice, has to drink water to get the food to go down. Last EGD was in 2012. The patient is being seen by me today at the request of Dr. Gagnon for my opinion and advice regarding screening colonoscopy. Past medical history is significant for hypertension, sleep apnea, headaches, lubbago. Patient denies any problems with sedation in the past. PAST MEDICAL HISTORY Diagnosis Date - Benign neoplasm of colon - Degenerative disc disease 08/09/2009 BMD 01/2010 normal. Low VitD and calcium- enc supplements - Depressive disorder, not elsewhere classified 02/06/2007 - Diverticulosis of colon (without mention of hemorrhage) Diverticulosis - Episodic cluster headache, not intractable 04/23/2015 - Erectile dysfunction 01/18/2011 - Essential hypertension 11/28/2005 - Internal hemorrhoids without mention of complication - Lumbago - Lumbar spondylosis 08/12/2012 - VICENTA (obstructive sleep apnea) AHI 40.5 08/22/2016 - VICENTA on CPAP 08/22/2016 [facility] - Personal history of colonic polyps Colon polyps - Personal history of tobacco use 08/09/2009 - Unspecified essential hypertension - Unspecified hemorrhoids without mention of complication Hemorrhoids - Vitamin D deficiency 07/25/2010 27.9 level in 12/2009, started supplements PAST SURGICAL HISTORY Procedure Laterality Date - APPENDECTOMY - COLONOS W/REM POLYP SNARE 02/09/08 - COLONOSCOP W/ OR W/O BRSH SPEC 07/27/2004 Colonoscopy - EGD W/O OR W/BRUSH/WASH 11/13/12 EGD - PAST SURGICAL HISTORY OF 1998 right great toe growth removed - PAST SURGICAL HISTORY OF injections in back for pain Current Outpatient Prescriptions: triamterene-hydrochlorothiazide (MAXZIDE-25) 37.5-25 mg per tablet Take 1 tablet by mouth once daily. diltiazem CD (CARTIA XT) 240 mg 24 hr capsule Take 1 capsule by mouth once daily. meloxicam (MOBIC) 15 mg tablet TAKE 1 TABLET EVERY DAY potassium chloride ER (K-DUR, KLOR-CON) 10 mEq tablet TAKE 2 TABLETS ONE TIME DAILY WITH FOOD turmeric root extract 500 mg cap Take 1 capsule by mouth twice daily. CPAP AutoPAP 5-15 cmH2O, suitable mask, humidity, filters. Lifetime supplies. Dx: G47.33. nystatin powder Apply to affected area twice daily as needed. 1 application Cholecalciferol, Vitamin D3, 2,000 unit ORAL Cap Take 1 tablet by mouth once daily. sildenafil (VIAGRA) 100 mg ORAL tablet Take 1 tablet by mouth. Take 30-60min before sexual intercourse as needed. No current facility-administered medications for this visit. ALLERGIES: Patient has no known allergies. PERSONAL HISTORY: Social History Marital status: Spouse name: Years of education: Number of children: 0 Occupational History Occupation Employer Comment retired [employer] Social History Main Topics Smoking status: Former Smoker Packs/day: 0.50 Years: 40.00 Types: Cigarettes Quit date: 02/21/2009 Smokeless tobacco: Never Used Comment: less than a half a pack Alcohol use: Yes 1.0 oz/week Comment: rare Drug use: Yes Types: Marijuana Comment: occasionally Sexual activity: Yes Partners with: Female FAMILY HISTORY: FAMILY HISTORY Problem Relation Age of Onset - Other [OTHER] Father MVA - Hypertension Brother - colon polyps [OTHER] Brother were cancerous - Cancer Mother - Thyroid Mother - Alzheimer's Disease Mother - Hypertension Sister REVIEW OF SYMPTOMS: The review of systems data was entered by the nurse and reviewed by me Nursing Notes: Natalya Fermin LPN 11/18/2017 9:34 AM Signed REVIEW OF SYSTEMS: General: The patient denies fatigue, denies weight loss, denies weight gain, denies feeling hot, and denies feelings of cold. Eyes: The patient denies glaucoma, NOTES eye injury/surgery, DOES wear glasses or contacts. Ear/Nose/Throat: The patient denies allergies, denies hayfever, denies ear infections, and denies bloody noses. Cardiovascular: The patient denies chest pain, denies heart disease, denies high blood pressure,denies cardiac stent, denies prior heart attack, denies irregular heart beat, denies high cholesterol, denies poor circulation, denies heart failure, other cardiac issues, denies claudication, denies cold feet, denies peripheral arterial stent. Respiratory: The patient denies tuberculosis, denies pneumonia, denies frequent cough, denies pulmonary embolism, denies shortness of breath, and denies coughing up blood. Gastrointestinal: The patient denies difficulty swallowing, denies acid reflux, denies ulcers, denies vomiting, denies jaundice/hepatitis, denies gallbladder problems, denies black or tarry stools, denies hemorrhoids, denies bleeding from rectum, denies diverticulitis, denies constipation, denies diarrhea, denies loss of stool control, and denies hernias. Kidney/Bladder: The patient denies kidney stones, denies urine infections, and denies bloody urine. Skin: The patient denies a history of skin cancer, denies bleeding/changing moles, and denies a history of skin rash. Neurologic: The patient denies a history of epilepsy/convulsions, denies headaches, denies head/spinal injuries, and denies stroke/TIA. Psychiatric: The patient denies psychiatric medications, denies depression, and denies voices, denies substance abuse. Endocrine: The patient denies thyroid disorders, denies diabetes, and denies hormonal problems. Hematologic: The patient denies a history of bruising, denies bleeding, and denies anemia, denies blood clots. Infections: The patient denies a history of measles and mumps, denies rheumatic fever, and denies sexually transmitted diseases. Musculoskeletal: The patient denies back pain/injury, NOTES back problems, denies sciatica, denies knee/foot trouble, NOTES arthritis, or denies gout. When was patient's last Mammogram screening? N/A Last Colonoscopy: 10/2012 Natalya Fermin LPN I have confirmed and edited as necessary, the PFSH and ROS obtained by others. PHYSICAL EXAMINATION: General: The patient is 67 year old male, well nourished, well hydrated in no acute distress. The patient is oriented to time, place, and person. VITALS: Blood pressure 126/74, height 185.4 cm (6' 1), weight 119.3 kg (263 lb). Body mass index is 34.7 kg/m?. HEENT: Normal cephalic, ataumatic, pupils are equally round, sclera are anicteric, mucous membranes are moist, oropharynx is clear. Neck has no masses, asymmetry or lymphadenopathy. Respiratory: Clear to auscultation and percussion. Normal respiratory excursion and pattern. Cardiac: Examination is regular rate and rhythm. Abdominal exam: Soft, nontender, with no palpable masses. No hepatosplenomegaly. No palpable hernias. Rectal exam: exam deferred Extremities: no clubbing, cyanosis or edema. No adenopathy. Other: LABORATORY VALUES: As Noted RADIOLOGIC STUDIES: As Noted Assessment IMPRESSION: encounter for screening colonoscopy, high-risk due to family history of colon cancer and personal history of polyps. Swallowing issues-recommend EGD in addition to colonoscopy PLAN: We will plan for upper and lower endoscopy. We discussed the risks and benefits of the planned endoscopy. I have informed the patient that complications can occur including failure to complete the endoscopy and perforation. The patient had the opportunity to ask questions concerning the planned endoscopy. My staff has also explained the procedure to the patient in understandable terms and has given the patient printed material concerning the procedure. The patient freely consents to surgery. I plan to use golytely bowel preparation for endoscopy Diagnoses: (Z80.0) Family history of colon cancer (primary encounter diagnosis) (R13.10) Esophageal dysphagia (Z12.11) Encounter for screening for malignant neoplasm of colon (Z86.010) Personal history of colonic polyps My findings have been communicated to Dr. Lenin Gagnon MD via shared medical record. This note will be forwarded to Dr. Lenin Gagnon MD. Return to Clinic: The patient is instructed to follow-up with me 1 week post operatively. ASHLYN Hendricks Observed: 11/18/2017 Status: COMPLETED Source: [place] 9:00 AM [facility] REPOSITORY Office Visit (GENSWS) KATEY CORDON V ([id number]) 1950 M Date Time Provider Department 11/18/17 9:00 AM DAVID AVILA (PA) GENALBERTS During your visit today, we recorded the following information about you: Blood pressure Weight Height 126/74 119.3 kg 1.854 m Natalya Fermin KRAIG 11/18/2017 9:34 AM Signed REVIEW OF SYSTEMS: General: The patient denies fatigue, denies weight loss, denies weight gain, denies feeling hot, and denies feelings of cold. Eyes: The patient denies glaucoma, NOTES eye injury/surgery, DOES wear glasses or contacts. Ear/Nose/Throat: The patient denies allergies, denies hayfever, denies ear infections, and denies bloody noses. Cardiovascular: The patient denies chest pain, denies heart disease, denies high blood pressure,denies cardiac stent, denies prior heart attack, denies irregular heart beat, denies high cholesterol, denies poor circulation, denies heart failure, other cardiac issues, denies claudication, denies cold feet, denies peripheral arterial stent. Respiratory: The patient denies tuberculosis, denies pneumonia, denies frequent cough, denies pulmonary embolism, denies shortness of breath, and denies coughing up blood. Gastrointestinal: The patient denies difficulty swallowing, denies acid reflux, denies ulcers, denies vomiting, denies jaundice/hepatitis, denies gallbladder problems, denies black or tarry stools, denies hemorrhoids, denies bleeding from rectum, denies diverticulitis, denies constipation, denies diarrhea, denies loss of stool control, and denies hernias. Kidney/Bladder: The patient denies kidney stones, denies urine infections, and denies bloody urine. Skin: The patient denies a history of skin cancer, denies bleeding/changing moles, and denies a history of skin rash. Neurologic: The patient denies a history of epilepsy/convulsions, denies headaches, denies head/spinal injuries, and denies stroke/TIA. Psychiatric: The patient denies psychiatric medications, denies depression, and denies voices, denies substance abuse. Endocrine: The patient denies thyroid disorders, denies diabetes, and denies hormonal problems. Hematologic: The patient denies a history of bruising, denies bleeding, and denies anemia, denies blood clots. Infections: The patient denies a history of measles and mumps, denies rheumatic fever, and denies sexually transmitted diseases. Musculoskeletal: The patient denies back pain/injury, NOTES back problems, denies sciatica, denies knee/foot trouble, NOTES arthritis, or denies gout. When was patient's last Mammogram screening? N/A Last Colonoscopy: 10/2012 Natalya Avila PA-C 11/18/2017 11:52 AM Signed HISTORY AND PHYSICAL Katey Cordon 1950 REFERRING PHYSICIAN: Lenin Gagnon MD CHIEF COMPLAINT: colon consult HPI: The patient is a 67 year old male referred for endoscopy. Katey notes a personal history of colon polyps as well as first-degree family history of colon cancer-brother. He was advised after last colonoscopy by Dr. Lin in 2012 to have 5-year follow-up. She denies any change in bowel habits, weight changes, blood in stools, black tarry stools or abdominal pain. The patient NOTES a history of swallowing issues and sensation of food becoming stuck in his throat, particularly rice, has to drink water to get the food to go down. Last EGD was in 2012. The patient is being seen by me today at the request of Dr. Gagnon for my opinion and advice regarding screening colonoscopy. Past medical history is significant for hypertension, sleep apnea, headaches, lubbago. Patient denies any problems with sedation in the past. PAST MEDICAL HISTORY Diagnosis Date - Benign neoplasm of colon - Degenerative disc disease 08/09/2009 BMD 01/2010 normal. Low VitD and calcium- enc supplements - Depressive disorder, not elsewhere classified 02/06/2007 - Diverticulosis of colon (without mention of hemorrhage) Diverticulosis - Episodic cluster headache, not intractable 04/23/2015 - Erectile dysfunction 01/18/2011 - Essential hypertension 11/28/2005 - Internal hemorrhoids without mention of complication - Lumbago - Lumbar spondylosis 08/12/2012 - VICENTA (obstructive sleep apnea) AHI 40.5 08/22/2016 - VICENTA on CPAP 08/22/2016 [facility] - Personal history of colonic polyps Colon polyps - Personal history of tobacco use 08/09/2009 - Unspecified essential hypertension - Unspecified hemorrhoids without mention of complication Hemorrhoids - Vitamin D deficiency 07/25/2010 27.9 level in 12/2009, started supplements PAST SURGICAL HISTORY Procedure Laterality Date - APPENDECTOMY - COLONOS W/REM POLYP SNARE 02/09/08 - COLONOSCOP W/ OR W/O BRSH SPEC 07/27/2004 Colonoscopy - EGD W/O OR W/BRUSH/WASH 11/13/12 EGD - PAST SURGICAL HISTORY OF 1998 right great toe growth removed - PAST SURGICAL HISTORY OF injections in back for pain Current Outpatient Prescriptions: triamterene-hydrochlorothiazide (MAXZIDE-25) 37.5-25 mg per tablet Take 1 tablet by mouth once daily. diltiazem CD (CARTIA XT) 240 mg 24 hr capsule Take 1 capsule by mouth once daily. meloxicam (MOBIC) 15 mg tablet TAKE 1 TABLET EVERY DAY potassium chloride ER (K-DUR, KLOR-CON) 10 mEq tablet TAKE 2 TABLETS ONE TIME DAILY WITH FOOD turmeric root extract 500 mg cap Take 1 capsule by mouth twice daily. CPAP AutoPAP 5-15 cmH2O, suitable mask, humidity, filters. Lifetime supplies. Dx: G47.33. nystatin powder Apply to affected area twice daily as needed. 1 application Cholecalciferol, Vitamin D3, 2,000 unit ORAL Cap Take 1 tablet by mouth once daily. sildenafil (VIAGRA) 100 mg ORAL tablet Take 1 tablet by mouth. Take 30-60min before sexual intercourse as needed. No current facility-administered medications for this visit. ALLERGIES: Patient has no known allergies. PERSONAL HISTORY: Social History Marital status: Spouse name: Years of education: Number of children: 0 Occupational History Occupation Employer Comment retired [employer] Social History Main Topics Smoking status: Former Smoker Packs/day: 0.50 Years: 40.00 Types: Cigarettes Quit date: 02/21/2009 Smokeless tobacco: Never Used Comment: less than a half a pack Alcohol use: Yes 1.0 oz/week Comment: rare Drug use: Yes Types: Marijuana Comment: occasionally Sexual activity: Yes Partners with: Female FAMILY HISTORY: FAMILY HISTORY Problem Relation Age of Onset - Other [OTHER] Father MVA - Hypertension Brother - colon polyps [OTHER] Brother were cancerous - Cancer Mother - Thyroid Mother - Alzheimer's Disease Mother - Hypertension Sister REVIEW OF SYMPTOMS: The review of systems data was entered by the nurse and reviewed by dc Nursing Notes: Natalya Fermin LPN 11/18/2017 9:34 AM Signed REVIEW OF SYSTEMS: General: The patient denies fatigue, denies weight loss, denies weight gain, denies feeling hot, and denies feelings of cold. Eyes: The patient denies glaucoma, NOTES eye injury/surgery, DOES wear glasses or contacts. Ear/Nose/Throat: The patient denies allergies, denies hayfever, denies ear infections, and denies bloody noses. Cardiovascular: The patient denies chest pain, denies heart disease, denies high blood pressure,denies cardiac stent, denies prior heart attack, denies irregular heart beat, denies high cholesterol, denies poor circulation, denies heart failure, other cardiac issues, denies claudication, denies cold feet, denies peripheral arterial stent. Respiratory: The patient denies tuberculosis, denies pneumonia, denies frequent cough, denies pulmonary embolism, denies shortness of breath, and denies coughing up blood. Gastrointestinal: The patient denies difficulty swallowing, denies acid reflux, denies ulcers, denies vomiting, denies jaundice/hepatitis, denies gallbladder problems, denies black or tarry stools, denies hemorrhoids, denies bleeding from rectum, denies diverticulitis, denies constipation, denies diarrhea, denies loss of stool control, and denies hernias. Kidney/Bladder: The patient denies kidney stones, denies urine infections, and denies bloody urine. Skin: The patient denies a history of skin cancer, denies bleeding/changing moles, and denies a history of skin rash. Neurologic: The patient denies a history of epilepsy/convulsions, denies headaches, denies head/spinal injuries, and denies stroke/TIA. Psychiatric: The patient denies psychiatric medications, denies depression, and denies voices, denies substance abuse. Endocrine: The patient denies thyroid disorders, denies diabetes, and denies hormonal problems. Hematologic: The patient denies a history of bruising, denies bleeding, and denies anemia, denies blood clots. Infections: The patient denies a history of measles and mumps, denies rheumatic fever, and denies sexually transmitted diseases. Musculoskeletal: The patient denies back pain/injury, NOTES back problems, denies sciatica, denies knee/foot trouble, NOTES arthritis, or denies gout. When was patient's last Mammogram screening? N/A Last Colonoscopy: 10/2012 Natalya Fermin LPN I have confirmed and edited as necessary, the PFSH and ROS obtained by others. PHYSICAL EXAMINATION: General: The patient is 67 year old male, well nourished, well hydrated in no acute distress. The patient is oriented to time, place, and person. VITALS: Blood pressure 126/74, height 185.4 cm (6' 1), weight 119.3 kg (263 lb). Body mass index is 34.7 kg/m?. HEENT: Normal cephalic, ataumatic, pupils are equally round, sclera are anicteric, mucous membranes are moist, oropharynx is clear. Neck has no masses, asymmetry or lymphadenopathy. Respiratory: Clear to auscultation and percussion. Normal respiratory excursion and pattern. Cardiac: Examination is regular rate and rhythm. Abdominal exam: Soft, nontender, with no palpable masses. No hepatosplenomegaly. No palpable hernias. Rectal exam: exam deferred Extremities: no clubbing, cyanosis or edema. No adenopathy. Other: LABORATORY VALUES: As Noted RADIOLOGIC STUDIES: As Noted Assessment IMPRESSION: encounter for screening colonoscopy, high-risk due to family history of colon cancer and personal history of polyps. Swallowing issues-recommend EGD in addition to colonoscopy PLAN: We will plan for upper and lower endoscopy. We discussed the risks and benefits of the planned endoscopy. I have informed the patient that complications can occur including failure to complete the endoscopy and perforation. The patient had the opportunity to ask questions concerning the planned endoscopy. My staff has also explained the procedure to the patient in understandable terms and has given the patient printed material concerning the procedure. The patient freely consents to surgery. I plan to use golytely bowel preparation for endoscopy Diagnoses: (Z80.0) Family history of colon cancer (primary encounter diagnosis) (R13.10) Esophageal dysphagia (Z12.11) Encounter for screening for malignant neoplasm of colon (Z86.010) Personal history of colonic polyps My findings have been communicated to Dr. Lenin Gagnon MD via shared medical record. This note will be forwarded to Dr. Lenin Gagnon MD. Return to Clinic: The patient is instructed to follow-up with me 1 week post operatively. David Avila PA-C Referring Provider: LENIN GAGNON [[id number]] Allergies As of Date: 11/18/2017 (No Known Allergies) Date Reviewed: 11/18/2017 Reviewed by: David Avila (Pa) - Fully Assessed Reason for Visit: colon consult [Other] Primary Visit Diagnosis:Family history of colon cancer [Z80.0] Other Visit Diagnoses:Esophageal dysphagia [R13.10] Encounter for screening for malignant neoplasm of colon [Z12.11] Personal history of colonic polyps [Z86.010] Order(s):COLONOSCOPY, SCREENING, HIGH RISK [[id number]] Order #: [id number] FUTURE EGD [[id number]] Order #: [id number] FUTURE Prescriptions as of 11/18/2017 Sig: TRIAMTERENE 37.5 MG-HYDROCHLO* Take 1 tablet by mouth once d* DILTIAZEM SR 240 MG 24 HR CAP Take 1 capsule by mouth once * MELOXICAM 15 MG TABLET TAKE 1 TABLET EVERY DAY POTASSIUM CHLORIDE ER 10 MEQ * TAKE 2 TABLETS ONE TIME DAILY* TURMERIC ROOT EXTRACT 500 MG * Take 1 capsule by mouth twice* CPAP AutoPAP 5-15 cmH2O, suitable * NYSTATIN 100,000 UNIT/GRAM TO* Apply to affected area twice* CHOLECALCIFEROL (VITAMIN D3) * Take 1 tablet by mouth once d* SILDENAFIL 100 MG TABLET Take 1 tablet by mouth. Take * Problem List As Of Date 11/18/2017 Noted Resolved Sprain and Strain of Ribs [S23.41XA] INVALID FOR*08/09/2009 Unspecified constipation [K59.00] INVALID FOR*10/03/2016 Essential hypertension [I10] INVALID FOR* Lumbago [M54.5] 07/08/2017 Unspecified hemorrhoids without mention of comp* 10/03/2016 More... Diverticulosis of colon (without mention of hem* 10/03/2016 More... PERS HX COLONIC POLYPS [Z86.010] More... Tobacco Use Disorder [F17.200] INVALID FOR*08/09/2009 Depressive disorder, not elsewhere classified [*INVALID FOR*10/03/2016 BENIGN NEOPLASM LG BOWEL [D12.6] INVALID FOR* Degenerative disc disease [WFC0284] INVALID FOR*10/03/2016 More... Personal history of tobacco use [Z87.891] INVALID FOR*10/03/2016 Left hip pain [M25.552] INVALID FOR*10/03/2016 Vitamin D deficiency [E55.9] INVALID FOR*10/03/2016 More... Erectile dysfunction [N52.9] INVALID FOR* Lumbar spondylosis [M47.816] INVALID FOR* Episodic cluster headache, not intractable [G44*INVALID FOR*10/03/2016 VICENTA (obstructive sleep apnea) AHI 40.5 [G47.33] INVALID FOR* Visit Notes: >> Natalya Fermin KARIG SatNov 18, 2017 9:33 AM Status: Signed REVIEW OF SYSTEMS: General: The patient denies fatigue, denies weight loss, denies weight gain, denies feeling hot, and denies feelings of cold. Eyes: The patient denies glaucoma, NOTES eye injury/surgery, DOES wear glasses or contacts. Ear/Nose/Throat: The patient denies allergies, denies hayfever, denies ear infections, and denies bloody noses. Cardiovascular: The patient denies chest pain, denies heart disease, denies high blood pressure,denies cardiac stent, denies prior heart attack, denies irregular heart beat, denies high cholesterol, denies poor circulation, denies heart failure, other cardiac issues, denies claudication, denies cold feet, denies peripheral arterial stent. Respiratory: The patient denies tuberculosis, denies pneumonia, denies frequent cough, denies pulmonary embolism, denies shortness of breath, and denies coughing up blood. Gastrointestinal: The patient denies difficulty swallowing, denies acid reflux, denies ulcers, denies vomiting, denies jaundice/hepatitis, denies gallbladder problems, denies black or tarry stools, denies hemorrhoids, denies bleeding from rectum, denies diverticulitis, denies constipation, denies diarrhea, denies loss of stool control, and denies hernias. Kidney/Bladder: The patient denies kidney stones, denies urine infections, and denies bloody urine. Skin: The patient denies a history of skin cancer, denies bleeding/changing moles, and denies a history of skin rash. Neurologic: The patient denies a history of epilepsy/convulsions, denies headaches, denies head/spinal injuries, and denies stroke/TIA. Psychiatric: The patient denies psychiatric medications, denies depression, and denies voices, denies substance abuse. Endocrine: The patient denies thyroid disorders, denies diabetes, and denies hormonal problems. Hematologic: The patient denies a history of bruising, denies bleeding, and denies anemia, denies blood clots. Infections: The patient denies a history of measles and mumps, denies rheumatic fever, and denies sexually transmitted diseases. Musculoskeletal: The patient denies back pain/injury, NOTES back problems, denies sciatica, denies knee/foot trouble, NOTES arthritis, or denies gout. When was patient's last Mammogram screening? N/A Last Colonoscopy: 10/2012 Natalya Fermin LPN Encounter Status:Closed by DAVID AVILA PA-C on 11/18/17 HOSP Observed: 11/18/2017 Status: COMPLETED Source: [place] 12:00 AM [facility] REPOSITORY Patient:Katey Cordon V MRN: <[id number]> Height:6' 1(1.854 m) Weight:263 lb (119.296 kg) Outpatient Medications as of 12/03/17: triamterene-hydrochlorothiazide (MAXZIDE-25) 37.5-25 mg per tablet diltiazem CD (CARTIA XT) 240 mg 24 hr capsule meloxicam (MOBIC) 15 mg tablet potassium chloride ER (K-DUR, KLOR-CON) 10 mEq tablet turmeric root extract 500 mg cap CPAP nystatin powder Cholecalciferol, Vitamin D3, 2,000 unit ORAL Cap sildenafil (VIAGRA) 100 mg ORAL tablet Admission/Clinic Administered Medications as of 12/03/17: lactated ringers infusion Problem List: Essential hypertension [I10] Personal history of colonic polyps [Z86.010] Benign neoplasm of colon [D12.6] Erectile dysfunction [N52.9] Lumbar spondylosis [M47.816] VICENTA (obstructive sleep apnea) AHI 40.5 [G47.33] Allergies: No Known Allergies Date Verified:12/03/17 Lab Values No results within the last 30 days for the following basenames: K,HCT Progress Notes ([facility]): Dennis Ornelas 11/18/2017 9:38 AM Signed 12-03-2017 Colon/EGD Dr Bo Ornelas Progress Notes ([facility]): Natalya Fermin LPN 11/18/2017 9:34 AM Signed REVIEW OF SYSTEMS: General: The patient denies fatigue, denies weight loss, denies weight gain, denies feeling hot, and denies feelings of cold. Eyes: The patient denies glaucoma, NOTES eye injury/surgery, DOES wear glasses or contacts. Ear/Nose/Throat: The patient denies allergies, denies hayfever, denies ear infections, and denies bloody noses. Cardiovascular: The patient denies chest pain, denies heart disease, denies high blood pressure,denies cardiac stent, denies prior heart attack, denies irregular heart beat, denies high cholesterol, denies poor circulation, denies heart failure, other cardiac issues, denies claudication, denies cold feet, denies peripheral arterial stent. Respiratory: The patient denies tuberculosis, denies pneumonia, denies frequent cough, denies pulmonary embolism, denies shortness of breath, and denies coughing up blood. Gastrointestinal: The patient denies difficulty swallowing, denies acid reflux, denies ulcers, denies vomiting, denies jaundice/hepatitis, denies gallbladder problems, denies black or tarry stools, denies hemorrhoids, denies bleeding from rectum, denies diverticulitis, denies constipation, denies diarrhea, denies loss of stool control, and denies hernias. Kidney/Bladder: The patient denies kidney stones, denies urine infections, and denies bloody urine. Skin: The patient denies a history of skin cancer, denies bleeding/changing moles, and denies a history of skin rash. Neurologic: The patient denies a history of epilepsy/convulsions, denies headaches, denies head/spinal injuries, and denies stroke/TIA. Psychiatric: The patient denies psychiatric medications, denies depression, and denies voices, denies substance abuse. Endocrine: The patient denies thyroid disorders, denies diabetes, and denies hormonal problems. Hematologic: The patient denies a history of bruising, denies bleeding, and denies anemia, denies blood clots. Infections: The patient denies a history of measles and mumps, denies rheumatic fever, and denies sexually transmitted diseases. Musculoskeletal: The patient denies back pain/injury, NOTES back problems, denies sciatica, denies knee/foot trouble, NOTES arthritis, or denies gout. When was patient's last Mammogram screening? N/A Last Colonoscopy: 10/2012 Natalya Avila PA-C 11/18/2017 11:52 AM Signed HISTORY AND PHYSICAL Katey Cordon 1950 REFERRING PHYSICIAN: Lenin Gagnon MD CHIEF COMPLAINT: colon consult HPI: The patient is a 67 year old male referred for endoscopy. Katey notes a personal history of colon polyps as well as first-degree family history of colon cancer-brother. He was advised after last colonoscopy by Dr. Lin in 2012 to have 5-year follow-up. She denies any change in bowel habits, weight changes, blood in stools, black tarry stools or abdominal pain. The patient NOTES a history of swallowing issues and sensation of food becoming stuck in his throat, particularly rice, has to drink water to get the food to go down. Last EGD was in 2012. The patient is being seen by me today at the request of Dr. Gagnon for my opinion and advice regarding screening colonoscopy. Past medical history is significant for hypertension, sleep apnea, headaches, [place]. Patient denies any problems with sedation in the past. PAST MEDICAL HISTORY Diagnosis Date - Benign neoplasm of colon - Degenerative disc disease 08/09/2009 BMD 01/2010 normal. Low VitD and calcium- enc supplements - Depressive disorder, not elsewhere classified 02/06/2007 - Diverticulosis of colon (without mention of hemorrhage) Diverticulosis - Episodic cluster headache, not intractable 04/23/2015 - Erectile dysfunction 01/18/2011 - Essential hypertension 11/28/2005 - Internal hemorrhoids without mention of complication - Lumbago - Lumbar spondylosis 08/12/2012 - VICENTA (obstructive sleep apnea) AHI 40.5 08/22/2016 - VICENTA on CPAP 08/22/2016 [facility] - Personal history of colonic polyps Colon polyps - Personal history of tobacco use 08/09/2009 - Unspecified essential hypertension - Unspecified hemorrhoids without mention of complication Hemorrhoids - Vitamin D deficiency 07/25/2010 27.9 level in 12/2009, started supplements PAST SURGICAL HISTORY Procedure Laterality Date - APPENDECTOMY - COLONOS W/REM POLYP SNARE 02/09/08 - COLONOSCOP W/ OR W/O BRSH SPEC 07/27/2004 Colonoscopy - EGD W/O OR W/BRUSH/WASH 11/13/12 EGD - PAST SURGICAL HISTORY OF 1999 right great toe growth removed - PAST SURGICAL HISTORY OF injections in back for pain Current Outpatient Prescriptions: triamterene-hydrochlorothiazide (MAXZIDE-25) 37.5-25 mg per tablet Take 1 tablet by mouth once daily. diltiazem CD (CARTIA XT) 240 mg 24 hr capsule Take 1 capsule by mouth once daily. meloxicam (MOBIC) 15 mg tablet TAKE 1 TABLET EVERY DAY potassium chloride ER (K-DUR, KLOR-CON) 10 mEq tablet TAKE 2 TABLETS ONE TIME DAILY WITH FOOD turmeric root extract 500 mg cap Take 1 capsule by mouth twice daily. CPAP AutoPAP 5-15 cmH2O, suitable mask, humidity, filters. Lifetime supplies. Dx: G47.33. nystatin powder Apply to affected area twice daily as needed. 1 application Cholecalciferol, Vitamin D3, 2,000 unit ORAL Cap Take 1 tablet by mouth once daily. sildenafil (VIAGRA) 100 mg ORAL tablet Take 1 tablet by mouth. Take 30-60min before sexual intercourse as needed. No current facility-administered medications for this visit. ALLERGIES: Patient has no known allergies. PERSONAL HISTORY: Social History Marital status: Spouse name: Years of education: Number of children: 0 Occupational History Occupation Employer Comment retired [employer] Social History Main Topics Smoking status: Former Smoker Packs/day: 0.50 Years: 40.00 Types: Cigarettes Quit date: 02/21/2009 Smokeless tobacco: Never Used Comment: less than a half a pack Alcohol use: Yes 1.0 oz/week Comment: rare Drug use: Yes Types: Marijuana Comment: occasionally Sexual activity: Yes Partners with: Female FAMILY HISTORY: FAMILY HISTORY Problem Relation Age of Onset - Other [OTHER] Father MVA - Hypertension Brother - colon polyps [OTHER] Brother were cancerous - Cancer Mother - Thyroid Mother - Alzheimer's Disease Mother - Hypertension Sister REVIEW OF SYMPTOMS: The review of systems data was entered by the nurse and reviewed by dc Nursing Notes: Natalya Fermin LPN 11/18/2017 9:34 AM Signed REVIEW OF SYSTEMS: General: The patient denies fatigue, denies weight loss, denies weight gain, denies feeling hot, and denies feelings of cold. Eyes: The patient denies glaucoma, NOTES eye injury/surgery, DOES wear glasses or contacts. Ear/Nose/Throat: The patient denies allergies, denies hayfever, denies ear infections, and denies bloody noses. Cardiovascular: The patient denies chest pain, denies heart disease, denies high blood pressure,denies cardiac stent, denies prior heart attack, denies irregular heart beat, denies high cholesterol, denies poor circulation, denies heart failure, other cardiac issues, denies claudication, denies cold feet, denies peripheral arterial stent. Respiratory: The patient denies tuberculosis, denies pneumonia, denies frequent cough, denies pulmonary embolism, denies shortness of breath, and denies coughing up blood. Gastrointestinal: The patient denies difficulty swallowing, denies acid reflux, denies ulcers, denies vomiting, denies jaundice/hepatitis, denies gallbladder problems, denies black or tarry stools, denies hemorrhoids, denies bleeding from rectum, denies diverticulitis, denies constipation, denies diarrhea, denies loss of stool control, and denies hernias. Kidney/Bladder: The patient denies kidney stones, denies urine infections, and denies bloody urine. Skin: The patient denies a history of skin cancer, denies bleeding/changing moles, and denies a history of skin rash. Neurologic: The patient denies a history of epilepsy/convulsions, denies headaches, denies head/spinal injuries, and denies stroke/TIA. Psychiatric: The patient denies psychiatric medications, denies depression, and denies voices, denies substance abuse. Endocrine: The patient denies thyroid disorders, denies diabetes, and denies hormonal problems. Hematologic: The patient denies a history of bruising, denies bleeding, and denies anemia, denies blood clots. Infections: The patient denies a history of measles and mumps, denies rheumatic fever, and denies sexually transmitted diseases. Musculoskeletal: The patient denies back pain/injury, NOTES back problems, denies sciatica, denies knee/foot trouble, NOTES arthritis, or denies gout. When was patient's last Mammogram screening? N/A Last Colonoscopy: 10/2012 Natalya Fermin LPN I have confirmed and edited as necessary, the PFSH and ROS obtained by others. PHYSICAL EXAMINATION: General: The patient is 67 year old male, well nourished, well hydrated in no acute distress. The patient is oriented to time, place, and person. VITALS: Blood pressure 126/74, height 185.4 cm (6' 1), weight 119.3 kg (263 lb). Body mass index is 34.7 kg/m?. HEENT: Normal cephalic, ataumatic, pupils are equally round, sclera are anicteric, mucous membranes are moist, oropharynx is clear. Neck has no masses, asymmetry or lymphadenopathy. Respiratory: Clear to auscultation and percussion. Normal respiratory excursion and pattern. Cardiac: Examination is regular rate and rhythm. Abdominal exam: Soft, nontender, with no palpable masses. No hepatosplenomegaly. No palpable hernias. Rectal exam: exam deferred Extremities: no clubbing, cyanosis or edema. No adenopathy. Other: LABORATORY VALUES: As Noted RADIOLOGIC STUDIES: As Noted Assessment IMPRESSION: encounter for screening colonoscopy, high-risk due to family history of colon cancer and personal history of polyps. Swallowing issues-recommend EGD in addition to colonoscopy PLAN: We will plan for upper and lower endoscopy. We discussed the risks and benefits of the planned endoscopy. I have informed the patient that complications can occur including failure to complete the endoscopy and perforation. The patient had the opportunity to ask questions concerning the planned endoscopy. My staff has also explained the procedure to the patient in understandable terms and has given the patient printed material concerning the procedure. The patient freely consents to surgery. I plan to use golytely bowel preparation for endoscopy Diagnoses: (Z80.0) Family history of colon cancer (primary encounter diagnosis) (R13.10) Esophageal dysphagia (Z12.11) Encounter for screening for malignant neoplasm of colon (Z86.010) Personal history of colonic polyps My findings have been communicated to Dr. Lenin Gagnon MD via shared medical record. This note will be forwarded to Dr. Lenin Gagnon MD. Return to Clinic: The patient is instructed to follow-up with me 1 week post operatively. David Avila PA-C PROGRESS Observed: 07/11/2017 Status: COMPLETED Source: [place] 11:12 AM [facility] REPOSITORY HNO ID: [id number] Author: Marcia Dunn Service: (none) Author Type: (none) Type: Progress Notes Filed: 07/11/2017 11:13 AM Note Text: Scheduled patient for colonoscopy consultation with David Avila on 2017 Marcia Dunn PROGRESS Observed: 07/10/2017 Status: COMPLETED Source: [place] 9:20 AM [facility] REPOSITORY HNO ID: [id number] Author: Marcia Dunn Service: (none) Author Type: (none) Type: Progress Notes Filed: 07/10/2017 9:20 AM Note Text: 2nd failed attempt to contact patient, left voice message Marcia Dunn PROGRESS Observed: 07/08/2017 Status: COMPLETED Source: [place] 2:26 PM [facility] [place] REPOSITORY HNO ID: [id number] Author: Marcia Dunn Service: (none) Author Type: (none) Type: Progress Notes Filed: 07/08/2017 2:26 PM Note Text: 1st failed attempt to contact patient, left voice message Marcia Dunn PROGRESS Observed: 07/08/2017 Status: COMPLETED Source: [place] 10:32 AM [facility] [place] REPOSITORY HNO ID: [id number] Author: Lenin Gagnon Service: (none) Author Type: Physician Type: Progress Notes Filed: 07/08/2017 10:36 AM Note Text: This note was created using Panlriter. Subjective Katey Codron is a 66 year old male here for follow up. He stopped tramadol last year and was doing fine with meloxicam. His hypertension was controlled. He had no new concerns. His obstructive sleep apnea was mostly controlled, and he will call if he needed prescription for supplies. He was using his CPAP regularly with benefit. He was due for colonoscopy this year. ACTIVE PROBLEM LIST Essential Hypertension Personal History of Colonic Polyps Benign Neoplasm of Colon Erectile Dysfunction Lumbar Spondylosis VICENTA (obstructive sleep apnea) AHI 40.5 Current Outpatient Prescriptions: meloxicam (MOBIC) 15 mg tablet TAKE 1 TABLET EVERY DAY potassium chloride ER (K-DUR, KLOR-CON) 10 mEq tablet TAKE 2 TABLETS ONE TIME DAILY WITH FOOD diltiazem CD (CARTIA XT) 240 mg 24 hr capsule Take 1 capsule by mouth once daily. triamterene-hydrochlorothiazide (MAXZIDE-25) 37.5-25 mg per tablet Take 1 tablet by mouth once daily. turmeric root extract 500 mg cap Take 1 capsule by mouth twice daily. CPAP AutoPAP 5-15 cmH2O, suitable mask, humidity, filters. Lifetime supplies. Dx: G47.33. nystatin powder Apply to affected area twice daily as needed. 1 application sildenafil (VIAGRA) 100 mg ORAL tablet Take 1 tablet by mouth. Take 30-60min before sexual intercourse as needed. peg 3350-electrolytes (COLYTE) 240-22.72-6.72 -5.84 gram solution Take 4,000 mL by mouth one time only for 1 dose. Cholecalciferol, Vitamin D3, 2,000 unit ORAL Cap Take 1 tablet by mouth once daily. No current facility-administered medications for this visit. Review of Systems Constitutional: Negative. Respiratory: Negative. Cardiovascular: Negative. Gastrointestinal: Negative. Genitourinary: Negative. Objective BP 138/80 (BP Site: Right Arm, BP Position: Sitting, BP Cuff Size: Large Adult) Pulse 84 Temp 36.6 ?C (97.9 ?F) (Right Tympanic) Resp 20 Wt 118.8 kg (262 lb) BMI 34.57 kg/m2 Physical Exam Constitutional: No distress. Cardiovascular: Regular rhythm and normal heart sounds. Pulmonary/Chest: Effort normal and breath sounds normal. Musculoskeletal: He exhibits no edema. ASSESSMENT/PLAN: 1. Essential hypertension - ICD9: 401.9, ICD10: I10 (primary diagnosis) - good control - CBC - COMP METABOLIC PANEL - LIPID PANEL BASIC 2. VICENTA (obstructive sleep apnea) AHI 40.5 - ICD9: 327.23, ICD10: G47.33 History of compliance and benefit. 3. Benign neoplasm of colon, unspecified part of colon - ICD9: 211.3, ICD10: D12.6 Due for recheck. Patient indicated understanding and willingness to follow recommendations. 4. Special screening for malignant neoplasms, colon - ICD9: V76.51, ICD10: Z12.11 - COLONOSCOPY SCRN NOT HIGH RISK Lenin Gagnon MD PROGRESS Observed: 07/08/2017 Status: COMPLETED Source: [place] 10:26 AM [facility] REPOSITORY HNO ID: [id number] Author: Lenin Gagnon Service: (none) Author Type: Physician Type: Progress Notes Filed: 07/08/2017 10:36 AM Note Text: TR OPEN ACCESS QUESTIONNAIRE 1. Are you or could you be ? NA 2. Are you currently having any stomach/gastrointestinal issues at this time such as constipation, diarrhea, abdominal pain, rectal bleeding etc? No 3. Do you have an implanted device such as a defibrillator, pacemaker, Cardiac Stent or deep brain stimulation device? No 4. Do you have any new or past cardiac (heart) or pulmonary (lung) issues? No 5. Is the patient's BMI 40 or greater? No:Body mass index is 34.57 kg/(m2).. Last Wt 07/08/17 : 118.8 kg (262 lb) Last Ht 04/03/16 : 185.4 cm (6' 1) 6. Have you had difficulty with prior sedations or complications with other procedures? No 7. Have you had difficulty with anesthesia previously re: ? Difficult intubation? No ? Other difficulty or allergic reaction to anesthesia other than post op N/V? No 8. Do you currently use oxygen or a breathing machine at night? Yes / CPAP 9. Do you take any narcotics, depression or anti-Anxiety medications or 3 or more prescription drugs on a daily basis? No 10. Do you use any illegal or recreational drugs? Yes / marijuana off and on. 11. Have you been hospitalized in the past 6 weeks? No 12. Are you on dialysis or have Chronic Kidney Disease? No 13. Have you been diagnosed with chronic liver disease such as hepatitis or cirrhosis? No 14. Do you have a seizure disorder? No 15. Do you have difficulty swallowing? No 16. Do you have ulcerative colitis or Crohn's disease? No 17. Do you take any Blood thinners, including Aspirin or fish oil? No 18. Do you have any blood disorders (re:hemophiliac)? No 19. Are you Diabetic? No 20. Any other important health information we should be made aware of prior to your colonoscopy? No Checklist: Prior to closing the encounter: ? Complete questionnaire: Yes ? Confirm Prep order has been Ordered/Pended: Yes. ? Patient's procedure could be delayed if not given the script for the prep. Please ensure the prep is escripted to pharmacy or printed. Instructions for the prep will print upon filing or pending this smartset. ? Please send all open access questionnaires to [facility] Sched Pool #[id number] ALLERGIES ALLERGIES DATE TYPE / CODE NAME / CODE REACTION SEVERITY SOURCE 06/16/2018 Drug No Known Unknown [place] [facility] Allergy/416 Allergies/W85415 [facility] [id number](SNOM 0388(RXNORM) Repository ED CT) Drug NO KNOWN [facility] Class/94188 ALLERGIES [facility] [place] 1003(SNOMED Repository CT) ENCOUNTERS ENCOUNTERS ADMIT/DISCHARGE ACCOUNT ADMITTING ENCOUNTER LOCATION SOURCE NUMBER CLASS 06/16/2018/06/16/19 [id number] Emergency [facility] [place] [facility] ing:ED Repository 01/16/2018/01/17/20 [id number] Ambulatory [address] Repository 01/14/2018/01/16/20 [id number] Ambulatory [address] Repository 12/11/2017/12/13/19 [id number] Ambulatory [address] Repository 12/03/2017/12/04/19 [id number] BO, Ambulatory [address] Repository 11/18/2017/11/22/19 [id number] Ambulatory [address] Repository 07/08/2017/07/08/19 [id number] Ambulatory [address] Repository PAYERS PAYERS ENCOUNTER GUARANTOR PAYER SUBSCRIBER SOURCE 06/16/2018 [id number] Insurance:[facility]NA [facility] [id number][birth year][place]Policy Number: Repository [id number]: [id number] [id number] [phone] (HP) Date:[id number] [id number] [place] [id number]: 06/16/2018 Secondary NOT GIVENUNK Sameer Insurance:SELF PAY [facility] Number: Effective Repository Date:2018-06-16
== END 2018-06-16 14:35 | disposition home or self-care (01) ==
LOC: ED 14:23
PROVIDERS: Emergency Provider Emergency Medicine; Family Provider Internal Medicine; PCP Internal Medicine
DX: B02.9 Zoster without complications (principal); I10 Essential (primary) hypertension; Z79.899 Other long term (current) drug therapy; Z87.891 Personal history of nicotine dependence
CPT/HCPCS: 93005; 99282

== ENCOUNTER 2018-07-12 13:32 | Emergency (ER) | payer MEDICARE, SELFPAY ==
[2018-07-12 13:33] VITALS: BP 138/75; PULSE 108; RESP 24; TEMP 36.4; O2SAT 96; BMI 34.2
[2018-07-12] MEDS: MethylPREDNISolone 125 MG/2 ML Vial IV (13:47)
[2018-07-12] MEDS: DiphenhydrAMINE 50 MG/ML Syringe 25 MG IV ×2 (13:47→14:58)
--- NOTE | 2018-07-12 13:51 | ED.DCSUM_ITS ---
- ER Visit Summary Date of Service: 07/12/18 Chief Complaint: Allergic reaction History of Present Illness: The patient is a 67 M who presents with an allergic reaction that occurred today. Patient was reporting plans when he noted some swelling of his face. Patient states he did eat [place] food earlier today. Patient denies any new foods, soaps, laundry detergents or other new exposures. Patient denies any difficulty breathing or difficulty swallowing. Patient states his eyelids are swelling and is having difficulty with his vision because of that. Patient denies any chest pain. Patient denies any nausea or vomiting. Physical Examination: Vital signs are stable. Patient is afebrile. Patient is in no acute distress. Oral mucosa is pink and moist. Airway is patent. Neck is supple. There is no JVD noted. Trachea is midline. Heart was regular rate and rhythm. Lungs are clear and equal bilateral. There is good respiratory effort noted. Abdomen is soft. Bowel sounds are normal. There is no tenderness. Skin is warm and dry. There is urticaria and edema of the face, chest, and upper arms bilaterally. There are no vesicles or pustules noted. The remaining physical exam is within normal limits. Emergency Department Course and Treatment: Patient was given subcutaneous epinephrine, IV Solu-Medrol, IV Pepcid, and IV Benadryl. Patient felt better initially but then developed more itching in his legs. Patient was given a repeat dose of Benadryl. Patient states the itching is improved but it has not completely resolved. Patient will be observed further in the emergency department. Patient was given prescriptions for prednisone and Atarax. Patient was instructed not to take Atarax and Benadryl together. Patient was instructed to follow-up with his primary care physician in 5-7 days. Patient understood and was agreeable with the plan. All questions were answered. Disposition: Discharge home Impression: Anaphylactic reaction This note was generated with [employer] dictation software. It may contain incorrect words, spelling, and punctuation that were not noted in review of the chart prior to signing ED Disposition - Plan for ED Patient: Disposition: Home or Assisted Living Diagnosis: Anaphylactic reaction Instructions: ED Allergic Reaction General Other Prescriptions: Hydroxyzine HCl 25 mg PO Q8H PRN PRN #20 tab PRN Reason: Itching predniSONE tablet 60 mg PO DAILY #15 tab Referrals: Lenin Monaco MD [Primary Care Provider] -
[2018-07-12 14:52] VITALS: BP 114/94; PULSE 91; RESP 18; O2SAT 95
[2018-07-12 15:02] VITALS: BP 132/69; PULSE 98; RESP 15; O2SAT 94
[2018-07-12 16:24] VITALS: BP 143/76; PULSE 83; RESP 18; O2SAT 96
[2018-07-12 17:02] VITALS: BP 134/86; PULSE 96; RESP 18; O2SAT 95
== END 2018-07-12 17:03 | disposition home or self-care (01) ==
PROVIDERS: Emergency Provider Emergency Medicine; Family Provider Internal Medicine; PCP Internal Medicine
DX: T78.2XXA Anaphylactic shock, unspecified, initial encounter (principal); T78.3XXA Angioneurotic edema, initial encounter; I10 Essential (primary) hypertension; Z79.899 Other long term (current) drug therapy
CPT/HCPCS: 96372; 96374; 96375; 96376; 99284; J7030; A4216; J3490

== ENCOUNTER 2022-08-30 19:53 | Emergency (ER) | payer MEDICARE, SELFPAY ==
[2022-08-30 19:55] VITALS: BP 159/79; PULSE 56; RESP 17; TEMP 36.2; O2SAT 96; BMI 32.5
--- NOTE | 2022-08-30 20:14 | EDS_ITS ---
HPI History of Present Illness Chief Complaint: Allergic Reaction Informant: patient Onset/Context/Timing Onset: Today Context: Sudden Onset Timing: Continuous Narrative Narrative: Patient with an acute allergic reaction within 10 to 15 minutes of eating shrimp. He had 2 prior reactions but they were relatively mild and he was not exactly sure if it was due to eating seafood or not, but this time he is sure that this was due to eating shrimp. He had itching and swelling of his eyelids mostly. He did not have arm, hand, foot swelling, nor did he have shortness of breath or chest tightness. He went to urgent care [facility], apparently he had felt very poorly and was nauseated, and although the patient did not realize it EMS reports that he had a period of unresponsiveness there and was given an EpiPen and Benadryl. The patient states he feels a lot better now. There was no history provided by any practitioners, no one else called prior to the patient's arrival. [facility] Medical History Adrenal mass Benign neoplasm of colon Chronic right hip pain Chronic right shoulder pain GERD (gastroesophageal reflux disease) Glenohumeral arthritis Hypertension Lumbar spondylolysis Marijuana smoker VICENTA (obstructive sleep apnea) Home Medications diltiazem HCl 240 mg capsule,extended release 24 hr (Cartia XT) 240 mg PO DAILY 06/16/18 [History Last Taken 06/15/18 240 MG] potassium chloride 10 mEq tablet,extended release(part/cryst) 10 meq PO DAILY 06/16/18 [History Last Taken 06/15/18 10 MEQ] triamterene 37.5 mg-hydrochlorothiazide 25 mg tablet 1 tab PO DAILY 06/16/18 [History Last Taken 06/15/18 1 TAB] diphenhydramine HCl 25 mg capsule (Banophen) 25 mg PO QHS PRN PRN Insomnia 07/12/18 [History Last Taken Unknown] hydroxyzine HCl 25 mg tablet 25 mg PO Q8H PRN PRN Itching #20 tabs 07/12/18 [Rx Last Taken Unknown] prednisone 20 mg tablet 60 mg PO DAILY #15 tabs 07/12/18 [Rx Last Taken Unknown] epinephrine 0.3 mg/0.3 mL injection, auto-injector (EpiPen) 0.3 mg (0.3 mL) IM Q4H PRN anaphylaxis #2 ea 08/30/22 [Rx Last Taken Unknown] prednisone 20 mg tablet 40 mg PO QHS #6 TABLETS 08/30/22 [Rx Last Taken Unknown] Allergy/AdvReac Type Severity Reaction Status Date / Time No Known Allergies Allergy Verified 06/16/18 13:37 Social History Smoking Status: Never smoker ROS ROS ED Constitutional Constitutional ED: Denies chills or fever(s) Eyes Eyes: Denies change in vision or diplopia ENT ENT ED: Reports other Details: Eyelid swelling and itching. No tongue, throat swelling or itching, no trouble talking or breathing. ; Denies rhinorrhea or sore throat Cardiovascular Cardiovascular: Reports lightheadedness, nausea and syncope; Denies chest pain or palpitations Respiratory/Chest Respiratory/Chest: Denies cough or dyspnea Gastrointestinal Gastrointestinal: Reports nausea; Denies abdominal pain or diarrhea Genitourinary Genitourinary ED: Denies dysuria or hematuria Musculoskeletal Musculoskeletal: Denies back pain or neck pain Integumentary Reports pruritus; Denies abscess or rash Neurologic Neurologic: Denies headache(s), paresthesias or weakness Psychiatric Psychiatric: Denies anxiety or suicidal thoughts EXAM Physical Exam Const Vital Signs: 08/30/22 19:55 08/30/22 20:03 08/30/22 20:57 Temperature 97.2 F L Temperature Source Temporal Pulse Rate 56 L 85 Respiratory Rate 17 19 H Respiratory Effort Normal Non-Labored Blood Pressure 159/79 H 163/86 H Blood Pressure Mean 105 111 Pulse Ox 96 96 Oxygen Delivery Method Room Air Room Air Positive well nourished and well developed Constitutional Narrative: Well-appearing, conversive in full sentences without difficulty General Appearance ED: well developed and NAD HEENT Reports moist mucous membranes HEENT Narrative: No stridor. Mild bilateral eyelid swelling, able to open eyes. Normal throat and tongue. Normal voice. normocephalic and atraumatic Eyes PERRL and EOMs intact bilaterally Neck full ROM and supple Resp normal respiratory effort and clear to auscultation bilaterally Cardio regular rate, regular rhythm and no murmurs Rate: Negative for tachycardic GI non-tender and non-distended Auscultation: normoactive bowel sounds Palpation: soft Back/Spine no CVA tenderness General Back: other FROM Extremity normal to inspection General Extremety ED: Negative for edema, pulses abnormal or tenderness General Extremity: Negative for edema or pulses abnormal Neuro oriented x3, CN's II-XII intact bilaterally and no sensory deficits noted Sensorium / Orientation: awake and alert Motor Exam: strength 5/5 throughout Psych mental status grossly normal Skin no rashes or lesions noted and no wounds Skin Narrative: Limited evaluation due to dark skin MDM MDM MDM Narrative Medical decision making narrative: Patient was given IV Solu-Medrol, his vital signs are stable we observed him for 2 hours. He felt further improved and had no other new symptoms or worsening. I am comfortable letting him go home since he has been 2+ hours after EpiPen, he is prescribed EpiPen as well as prednisone, advised to avoid seafood which he already intended to, and we discussed reasons to return. Discharge Plan Triage Chief Complaint: Allergic Reaction ED Provider: Rogerio Castro Dx/Rx/DC Orders Clinical Impression: Seafood allergy, anaphylaxis Instructions: ED Food Allergy Prescriptions: New prednisone 20 mg tablet 40 mg PO QHS Qty: 6 0RF epinephrine [EpiPen] 0.3 mg/0.3 mL auto-injector 0.3 mg IM Q4H PRN (Reason: anaphylaxis) Qty: 2 0RF No Action diltiazem HCl [Cartia XT] 240 MG capsule,extended release 24hr 240 mg PO DAILY triamterene-hydrochlorothiazid 37.5-25 MG tablet 1 tab PO DAILY potassium chloride 10 MEQ tablet 10 meq PO DAILY diphenhydramine HCl [Banophen] 25 MG capsule 25 mg PO QHS PRN PRN (Reason: Insomnia) prednisone 20 MG tablet 60 mg PO DAILY Qty: 15 0RF hydroxyzine HCl 25 MG tablet 25 mg PO Q8H PRN PRN (Reason: Itching) Qty: 20 0RF Primary Care Provider: Betito Mcclendon Referrals: Betito Mcclendon MD [Primary Care Provider] - 1-2 Days if not improving Activity Restrictions/Additional Instructions: Your already had steroids tonight, you may start the prescription tomorrow evening 4/7; take it until finished Disposition Disposition: Home, Self Care
[2022-08-30] MEDS: MethylPREDNISolone 125 MG/2 ML Vial IV (20:56)
[2022-08-30 20:57] VITALS: BP 163/86; PULSE 85; RESP 19; O2SAT 96
[2022-08-30 22:50] VITALS: RESP 16
== END 2022-08-30 22:50 | disposition home or self-care (01) ==
LOC: ED 20:25
PROVIDERS: Emergency Provider Emergency Medicine; PCP Family Medicine; Visit Provider Emergency Medicine
DX: T78.03XA Anaphylactic reaction due to other fish, initial encounter (principal); R11.0 Nausea; I10 Essential (primary) hypertension; Z79.52 Long term (current) use of systemic steroids; X58.XXXA Exposure to other specified factors, initial encounter
CPT/HCPCS: 96374; 99285